=== PATIENT | female | born 1935 | race African-American/Black ===

== ENCOUNTER 2020-12-21 07:55 | Outpatient (CLI) | payer MEDICARE, SELFPAY ==
--- NOTE | ~2020-12-21 | XR_ITS ---
EXAMINATION: XR esophogram water soluble DATE: 12/21/2020 09:35 CDT INDICATION: Achalasia TECHNIQUE: Water-soluble contrast with gas effervescent crystals were administered orally. Fluorosco pic images of the esophagus were obtained in various projections. The hypopharynx was also examined. Thereafter, overhead images of the thoracic esophagrus were performed. Fluroscopy time 0.6 minutes. 6 1 fluoroscopic images. FINDINGS: The esophagus is normal in caliber, without mucosal lesions or strictures. There are tertia ry contractions, consistent with presbyesophagus. No obstruction.. There is no hiatal hernia. No dis creet episode of gastroesophageal reflux is seen during the course of this study. IMPRESSION: 1. Tertiary contractions consistent with presbyesophagus. .No obstruction. Reviewed, dictated and finalized at location A.
== END 2020-12-21 07:56 | disposition home or self-care (01) ==
PROVIDERS: PCP Internal Medicine Gastroenterology; Visit Provider Internal Medicine Gastroenterology
DX: K22.0 Achalasia of cardia (principal)
CPT/HCPCS: 74220

== ENCOUNTER 2021-05-17 01:08 | Day surgery (SDC) | payer MEDICARE, SELFPAY ==
[2021-05-04 13:37] VITALS: BMI 22.0
--- NOTE | 2021-05-14 16:10 | P.HP_ITS ---
History of Present Illness History of Present Illness Consent: Risks, benefits, and alternatives have been discussed and questions answered. Patient agrees to proceed with procedure. Chief complaint: GERD Narrative: Casey Gonzalez is a 86 year old female with dysphagia. She states that she must chew her food very thoroughly. She does not regurgitate when she lays down. A couple years ago she was told when she lived in [place] that she had achalasia for which she had Botox injections Review of Systems Review of Systems: All systems reviewed & are unremarkable except as noted in HPI and below PMFSH Social History Social History Smoking status: Never smoker Alcohol intake: never Substance use: never Substance use type: does not use Living arrangements: retirement Spiritual care concerns: No Meds Home Medications and Allergies Home Medications Medication Instructions Recorded Confirmed Type aspirin 81 mg tablet,delayed 81 mg PO DAILY 10/28/20 05/13/21 History release atorvastatin 20 mg tablet 20 mg PO HS 10/28/20 05/13/21 History buspirone 10 mg tablet 10 mg PO BID 10/28/20 05/13/21 History diltiazem HCl 180 mg 180 mg PO DAILY 10/28/20 05/13/21 History capsule,extended release 24 hr diphenhydramine HCl 50 mg capsule 50 mg PO QHS PRN 10/28/20 05/13/21 History donepezil 10 mg tablet 10 mg PO QHS 10/28/20 05/13/21 History losartan 50 mg tablet 50 mg PO BID 10/28/20 05/13/21 History memantine 10 mg tablet 10 mg PO BID 10/28/20 05/13/21 History omeprazole 40 mg capsule,delayed 40 mg PO BID 10/28/20 05/13/21 History release sucralfate 100 mg/mL oral 10 ml PO QID ml 10/28/20 05/13/21 History suspension trazodone 50 mg tablet 50 mg PO QHS 10/28/20 05/13/21 History calcium carbonate [Tums] 200 mg PO DAILY PRN 05/13/21 05/13/21 History famotidine 20 mg PO BID 05/13/21 05/13/21 History sertraline 100 mg PO DAILY 05/13/21 05/13/21 History Allergies Allergy/AdvReac Type Severity Reaction Status Date / Time No Known Allergies Allergy Verified 05/17/21 11:20 Exam Const: General: alert Orientation/consciousness: patient oriented x3 Resp: Auscultation: clear to auscultation bilaterally Cardio: Rhythm: regular rhythm GI: GI Palp: Yes Soft to palpation and No Tenderness to palpation present (GI) Neuro: General: patient oriented x3 Assessment and Plan Assessment and plan (1) Dysphagia: Code(s): R13.10 - Dysphagia, unspecified Status: Acute Assessment and Plan: EGD with possible biopsy or dilatation or cautery.
[2021-05-17 11:22] VITALS: BP 173/79; PULSE 84; RESP 20; TEMP 36.2; O2SAT 95
[2021-05-17] MEDS: LACTATED RINGERS 1,000 ML 150 ML IV CONT (11:26)
--- NOTE | 2021-05-17 11:49 | P.PNAN_ITS ---
Anes - Initial Pre Proc Eval Procedure: Operation Date: 05/17/21 12:30 Proposed Procedures p Esophagogastroduodenoscopy - Nathaniel Hobbs MD Date/Time: 05/17/21 11:49 Surgeon: Nathaniel Hobbs MD Pre Op Diagnosis: GERD Patient Data Age: 86 Gender: F Height: 1.68 m Weight: 61.7 kg Last Vital Signs Temp 36.2 C L 05/17/21 11:22 Pulse 84 05/17/21 11:22 Resp 20 05/17/21 11:22 BP 173/79 H 05/17/21 11:22 Pulse Ox 95 05/17/21 11:22 Allergies Allergy/AdvReac Type Severity Reaction Status Date / Time No Known Allergies Allergy Verified 05/17/21 11:20 Home Medications Medication Instructions Recorded Confirmed Type aspirin 81 mg tablet,delayed 81 mg PO DAILY 10/28/20 05/13/21 History release atorvastatin 20 mg tablet 20 mg PO HS 10/28/20 05/13/21 History buspirone 10 mg tablet 10 mg PO BID 10/28/20 05/13/21 History diltiazem HCl 180 mg 180 mg PO DAILY 10/28/20 05/13/21 History capsule,extended release 24 hr diphenhydramine HCl 50 mg capsule 50 mg PO QHS PRN 10/28/20 05/13/21 History donepezil 10 mg tablet 10 mg PO QHS 10/28/20 05/13/21 History losartan 50 mg tablet 50 mg PO BID 10/28/20 05/13/21 History memantine 10 mg tablet 10 mg PO BID 10/28/20 05/13/21 History omeprazole 40 mg capsule,delayed 40 mg PO BID 10/28/20 05/13/21 History release sucralfate 100 mg/mL oral 10 ml PO QID ml 10/28/20 05/13/21 History suspension trazodone 50 mg tablet 50 mg PO QHS 10/28/20 05/13/21 History calcium carbonate [Tums] 200 mg PO DAILY PRN 05/13/21 05/13/21 History famotidine 20 mg PO BID 05/13/21 05/13/21 History sertraline 100 mg PO DAILY 05/13/21 05/13/21 History Patient hx anesthesia problems: none Family hx anesthesia problems: none Results Review: All pre-operative results and documents have been reviewed as part of the pre-operative evaluation. [facility] Past Medical History Medical History (Updated 05/17/21 @ 11:50 by Pawan Oconnell MD) GERD (gastroesophageal reflux disease) HTN (hypertension) Hyperlipidemia Surgical History Surgical History (Updated 05/17/21 @ 11:52 by Pawan Oconnell MD) History of esophagogastroduodenoscopy (EGD) Social History Social History Smoking status: Never smoker Alcohol intake: never Substance use: never Substance use type: does not use Living arrangements: custodial Spiritual care concerns: No Anes - Eval Final PreProcedure Day of Procedure 05/17/21 11:49 Patient weight: normal Heart: regular rate and rhythm Lungs: clear to auscultation Airway: Mallampati scale class II Neurological: alert and oriented Last oral intake: >/= 8 hours ASA classification: III Emergent: no Anesthetic plan: proceed Anesthesia type and monitoring: general GIVS and standard monitoring Results Review: All pre-operative results and documents have been reviewed as part of the pre-operative evaluation. Informed Consent: The patient's anesthetic plan and its attendant risks and benefits were discussed with the patient/family/POA. Questions were solicited and answers provided to the satisfaction of the patient/family/POA.
[2021-05-17 12:49] VITALS: BP 145/88; PULSE 78; RESP 20; O2SAT 100
[2021-05-17 12:59] VITALS: BP 126/78; PULSE 74; RESP 21; O2SAT 100
[2021-05-17 13:09] VITALS: BP 165/98; PULSE 73; RESP 15; O2SAT 99
== END 2021-05-17 13:15 | disposition home or self-care (01) ==
PROVIDERS: PCP Family Medicine; Visit Provider Internal Medicine Gastroenterology
PROC: 0DJ08ZZ Inspection of Upper Intestinal Tract, Via Natural or Artificial Opening Endoscopic (ICD-10-PCS; CPT 43235; principal; 2021-05-17 12:30)
DX: R13.10 Dysphagia, unspecified (principal); K21.9 Gastro-esophageal reflux disease without esophagitis; K29.70 Gastritis, unspecified, without bleeding; Z79.82 Long term (current) use of aspirin; I10 Essential (primary) hypertension; E78.5 Hyperlipidemia, unspecified
CPT/HCPCS: 43239; 43450; 87081; J2704; J7120

== ENCOUNTER 2022-05-14 18:33 | Emergency (ER) | payer MEDICARE, SELFPAY ==
[2022-05-14] VITALS (15 sets, daily range): BP systolic 126–174; BP diastolic 68–96; PULSE 75–87; RESP 16–24; TEMP 36.8; O2SAT 96–100
--- NOTE | 2022-05-14 18:38 | ECG_ITS ---
Measurements Intervals [place] Rate: 83 P: 0 [place]: 88 QRS: -14 QRSD: 138 T: -3 QT: 387 QTc: 456 Interpretive Statements SINUS RHYTHM WITH SHORT [place] INTERVAL POSSIBLE LEFT ATRIAL ENLARGEMENT RIGHT BUNDLE BRANCH BLOCK POSSIBLE LEFT VENTRICULAR HYPERTROPHY BASELINE ARTIFACT- V4-V6 ABNORMAL ECG NO PREVIOUS ECG AVAILABLE FOR COMPARISON Electronically Signed On 05-14-2022 20:12:34 CDT by Rajesh Grier D.O.
[2022-05-14 19:08] LABS: Basophils Percent Auto 0.4 % (0.2-1.2); Eosinophils Absolute Auto 0.1 K/mm3 (0-0.3); Eosinophils Percent Auto 1.1 % (0-4.4); Hematocrit 34.2 % (37.0-47.0); Hemoglobin 10.6 g/dL (12.0-15.0); Immature Granulocyte Absolute 0.02 K/mm3 (0.00-0.031); Immature Granulocyte Percent A 0.4 % (0-0.5); Lymphocytes Absolute Auto 1.56 K/mm3 (0.9-3.2); Lymphocytes Percent Auto 28.4 % (18.3-44.2); Mean Corpuscular Hemoglobin 28.6 pg (26-34); Mean Corpuscular Volume 92.4 fl (80-100); Mean Platelet Volume 11.2 fl (7.4-10.4); Monocytes Absolute Auto 0.6 K/mm3 (0.1-0.6); Monocytes Percent Auto 10.2 % (2.6-8.5); Neutrophils Absolute Auto 3.3 K/mm3 (1.3-6.7); Neutrophils Percent Auto 59.5 % (45.5-73.1); Platelet Count Result 258 k/mm3 (150-375); Red Cell Distribution Width 13.5 % (11.5-14.5); White Blood Count 5.5 K/mm3 (4.5-10.0)
[2022-05-14 19:12] LABS: Alanine Aminotransferase 20 U/L (6-35); Albumin Level 4.6 g/dL (3.5-5.1); Alkaline Phosphatase 146 U/L (38-126); Anion Gap 8 mmol/L (8-16); Aspartate Amino Transferase 32 U/L (14-36); Bilirubin,Total 0.5 mg/dL (0.2-1.3); Blood Urea Nitrogen 16 mg/dL (7-17); Calcium 8.9 mg/dL (8.4-10.2); Carbon Dioxide 30 mmol/L (22-30); Chloride 104 mmol/L (98-107); Estimated CRCL calculation 42 ml/min; Estimated Glomerular Filt Rate > 60; Glucose 132 mg/dL (65-110); Potassium 3.5 mmol/L (3.4-5.0); Sodium 142 mmol/L (137-145)
[2022-05-14 19:13] LABS: INR 1.1; Prothrombin Time 13.7 Seconds (11.1-14.7)
[2022-05-14 19:14] LABS: Partial Thromboplastin Time 30.6 SECONDS (22.3-36.8)
--- NOTE | 2022-05-14 20:04 | ED.GENADULT ---
HPI - General Adult General Chief complaint: Altered Mental Status Stated complaint: BACK AND BREAST PAIN Time Seen by Provider: 05/14/22 19:43 History of Present Illness HPI narrative: Patient is an 87-year-old female with a history of dementia, hypertension, hyperlipidemia, GERD presenting with lower back pain. Patient is a resident in a nursing facility. She has been complaining of lower back pain which was mentioned to her daughter today. Her daughter was concerned that she has a UTI as this is how she is presented in the past. Currently, the patient denies any complaints. She states that she does not have back pain right now. She denies abdominal pain, chest pain, shortness of breath, dysuria. Related Data Home Medications Medication Instructions Recorded Confirmed aspirin 81 mg tablet,delayed 81 mg PO DAILY 10/28/20 05/13/21 release atorvastatin 20 mg tablet 20 mg PO HS 10/28/20 05/13/21 buspirone 10 mg tablet 10 mg PO BID 10/28/20 05/13/21 diltiazem HCl 180 mg 180 mg PO DAILY 10/28/20 05/13/21 capsule,extended release 24 hr diphenhydramine HCl 50 mg capsule 50 mg PO QHS PRN pruritis 10/28/20 05/13/21 (Banophen) donepezil 10 mg tablet 10 mg PO QHS 10/28/20 05/13/21 losartan 50 mg tablet 50 mg PO BID 10/28/20 05/13/21 memantine 10 mg tablet 10 mg PO BID 10/28/20 05/13/21 omeprazole 40 mg capsule,delayed 40 mg PO BID 10/28/20 05/13/21 release sucralfate 100 mg/mL oral 10 ml PO QID 10/28/20 05/13/21 suspension trazodone 50 mg tablet 50 mg PO QHS 10/28/20 05/13/21 calcium carbonate 200 mg calcium 200 mg PO DAILY PRN GERD 05/13/21 05/13/21 (500 mg) chewable tablet (Tums) famotidine 10 mg tablet 20 mg PO BID 05/13/21 05/13/21 sertraline 100 mg tablet 100 mg PO DAILY 05/13/21 05/13/21 Allergies Allergy/AdvReac Type Severity Reaction Status Date / Time No Known Allergies Allergy Verified 05/17/21 11:20 Review of Systems Review of Systems: All systems reviewed & are unremarkable except as noted in HPI and below PMFSH Past Medical History Medical History GERD (gastroesophageal reflux disease) HTN (hypertension) Hyperlipidemia Surgical History Surgical History History of esophagogastroduodenoscopy (EGD) Social History Social History Smoking status: Never smoker Alcohol intake: never Substance use: never Substance use type: does not use Spiritual care concerns: No Exam Narrative: GENERAL: Well-appearing, well-nourished, and in no acute distress. HEAD: Normocephalic, atraumatic. EYES: PERRLA and EOMI. ENT: Nares clear, no rhinorrhea or epistaxis. Mucous membranes moist. NECK: Supple. CHEST: Clear to auscultation. No respiratory distress. HEART: Regular rate and rhythm. No murmur heard. Normal peripheral pulses. ABDOMEN: Soft, nontender, nondistended, normal active bowel sounds. EXTREMITIES: Normal range of motion. No edema. SKIN: Warm, dry, no rash. NEURO: No focal deficits. Alert and oriented x1. PSYCH: Normal mood and affect. Course Vital Signs Vital signs: Vital Signs Temperature 98.2 F 05/14/22 18:39 Pulse Rate 84 05/14/22 18:39 Respiratory Rate 17 05/14/22 18:39 Blood Pressure 174/70 H 05/14/22 18:39 Pulse Oximetry 96 05/14/22 18:39 Oxygen Delivery Room Air 05/14/22 18:39 Temperature 98.2 F 05/14/22 18:39 Pulse Rate 78 05/14/22 22:05 Respiratory Rate 17 05/14/22 22:05 Blood Pressure 150/96 H 05/14/22 21:31 Pulse Oximetry 98 05/14/22 20:31 Oxygen Delivery Room Air 05/14/22 18:39 Medical Decision Making [facility] Narrative Medical decision making narrative: Patient is an 87-year-old presenting with an episode of lower back pain. Vitals are within normal limits. Patient is nontoxic and in no acute distress. Exam is remarkable for above. Blood work
[2022-05-14 20:29] LABS: Appearance Urine Clear (Clear); Bilirubin Urine Negative (Negative); Blood Urine Negative (Negative); Color Urine Yellow (Yellow); Glucose Urine UA Negative (Negative); Ketones Urine Negative (Negative); Leukocyte Esterase Ur Negative LEU/UL (Negative); Nitrate Urine Negative (Negative); Protein Urine 1+ mg/dL (Negative); Specific Grav Ur 1.015 (1.001-1.035)
[2022-05-14] MEDS: SODIUM CHLORIDE 0.9% IV 1,000 ML 999 ML IV CONT (20:30)
[2022-05-14 20:49] LABS: Bacteria Urine Trace /hpf; Mucus Urine Heavy /lpf; RBC Urine 0-2 /hpf (0-2); WBC Urine 0-3 /hpf
[2022-05-14 20:55] LABS: Add Urine Microscopic? YES
--- NOTE | 2022-05-14 22:08 | PC.NURSE ---
[facility] called at this time and this nurse spoke with Helen, staff about d/c instruction and to make staff aware that family was bringing pt back to facility.
== END 2022-05-14 23:10 ==
PROVIDERS: Emergency Provider Emergency Medicine; PCP Family Medicine
DX: M54.50 Low back pain, unspecified (principal); I10 Essential (primary) hypertension; E78.5 Hyperlipidemia, unspecified; K21.9 Gastro-esophageal reflux disease without esophagitis; F03.90 Unspecified dementia, unspecified severity, without behavioral disturbance, psychotic disturbance, mood disturbance, and anxiety; Z79.82 Long term (current) use of aspirin; Z79.899 Other long term (current) drug therapy
CPT/HCPCS: 36415; 51701; 80053; 81001; 85025; 85610; 85730; 93005; 96360; 96361; 99284; J7030

== ENCOUNTER 2022-06-06 17:55 | Emergency (ER) | payer MEDICARE, SELFPAY ==
[2022-06-06 17:55] VITALS: BP 166/91; PULSE 85; RESP 18; TEMP 37; O2SAT 97
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
[2022-06-06 19:33] VITALS: BP 158/59; PULSE 83; RESP 14; O2SAT 96
[2022-06-06 20:05] LABS: Basophils Percent Auto 0.2 % (0.2-1.2); Eosinophils Percent Auto 0.3 % (0-4.4); Hemoglobin 9.9 g/dL (12.0-15.0); Immature Granulocyte Absolute 0.01 K/mm3 (0.00-0.031); Immature Granulocyte Percent A 0.2 % (0-0.5); Lymphocytes Absolute Auto 1.32 K/mm3 (0.9-3.2); Mean Corpuscular HGB Conc 31.9 g/dl (32-36); Mean Corpuscular Volume 90.9 fl (80-100); Mean Platelet Volume 10.6 fl (7.4-10.4); Monocytes Absolute Auto 0.7 K/mm3 (0.1-0.6); Monocytes Percent Auto 11.5 % (2.6-8.5); Neutrophils Absolute Auto 3.9 K/mm3 (1.3-6.7); Neutrophils Percent Auto 65.8 % (45.5-73.1); Platelet Count Result 240 k/mm3 (150-375); Red Blood Count 3.41 M/mm3 (4.2-5.4); Red Cell Distribution Width 14.1 % (11.5-14.5)
[2022-06-06 20:30] VITALS: BP 161/84; PULSE 81; RESP 19; O2SAT 100
[2022-06-06 20:30] LABS: Alanine Aminotransferase 17 U/L (6-35); Albumin Level 4.1 g/dL (3.5-5.1); Alkaline Phosphatase 84 U/L (38-126); Anion Gap 7 mmol/L (8-16); Aspartate Amino Transferase 29 U/L (14-36); Bilirubin,Total 0.4 mg/dL (0.2-1.3); Blood Urea Nitrogen 12 mg/dL (7-17); Calcium 9.1 mg/dL (8.4-10.2); Carbon Dioxide 31 mmol/L (22-30); Chloride 103 mmol/L (98-107); Estimated CRCL calculation 40 ml/min; Estimated Glomerular Filt Rate > 60; Glucose 99 mg/dL (65-110); Potassium 3.2 mmol/L (3.4-5.0); Sodium 141 mmol/L (137-145)
[2022-06-06 20:31] LABS: Appearance Urine Clear (Clear); Bilirubin Urine Negative (Negative); Blood Urine Negative (Negative); Color Urine Yellow (Yellow); Glucose Urine UA Negative (Negative); Ketones Urine Negative (Negative); Leukocyte Esterase Ur Negative LEU/UL (Negative); Nitrate Urine Negative (Negative); Protein Urine 1+ mg/dL (Negative); pH Urine 7.5 (5.0-9.0)
[2022-06-06 20:42] LABS: Bacteria Urine 1+ /hpf; Mucus Urine Heavy /lpf; Squamous Epithelial Cell Urine Rare /hpf (Few)
[2022-06-06 21:09] LABS: Add Urine Microscopic? YES
--- NOTE | 2022-06-06 21:14 | PC.NURSE ---
report to tia at [facility].
== END 2022-06-06 20:45 ==
PROVIDERS: Family Medicine; Emergency Provider Preventive Medicine Aerospace Medicine; PCP Family Medicine
DX: F03.918 Unspecified dementia, unspecified severity, with other behavioral disturbance (principal); E78.5 Hyperlipidemia, unspecified; I10 Essential (primary) hypertension; K21.9 Gastro-esophageal reflux disease without esophagitis; Z79.82 Long term (current) use of aspirin
CPT/HCPCS: 36415; 80053; 81001; 85025; 99283

== ENCOUNTER 2022-08-13 19:44 | Emergency (ER) | payer MEDICARE, SELFPAY ==
--- NOTE | ~2022-08-13 | XR_ITS ---
AP view of the pelvis and AP and lateral views of the left hip Clinical history: Pain Findings: No acute fracture or dislocation is seen. Osseous alignment is anatomic. Bilateral hip and SI joint spaces are preserved. Soft tissues are unremarkable. Impression: No significant abnormality is seen. Reviewed, dictated and finalized at [facility]. RAILROAD Impression: No significant abnormality is seen.
--- NOTE | ~2022-08-13 | XR_ITS ---
Left Shoulder Technique: AP and scapular Y views were obtained. Clinical History: Pain Findings: No fracture or dislocation is seen. Osseous alignment is anatomic. There is mild degenerati ve change of the acromioclavicular and glenohumeral joints. Soft tissues are unremarkable. Impression: Mild degenerative change of the glenohumeral and AC joints. No fracture or dislocation. Reviewed, dictated and finalized at location M. SUSPENDER CUTTER Impression: Mild degenerative change of the glenohumeral and AC joints. No fracture or dislocation.
--- NOTE | ~2022-08-13 | CT_ITS ---
CT head without contrast Indication: Status post fall Technique: Serial scans were obtained through the brain without the administration of contrast. Dose reduction technique was used on this scan by utilizing automated exposure control and iterative recon struction technique. The dose-length product (DLP) was 605.33 mGy-cm. Findings: There is no evidence of intracranial hemorrhage, mass lesion, or acute infarct. The ventri cles and subarachnoid spaces are dilated, consistent with mild atrophy. Low attenuation regions are seen within the periventricular white matter bilaterally, likely representing changes from chronic mi crovascular ischemic disease. There is no evidence of edema, mass effect or midline shift. The visu alized paranasal sinuses and mastoid air cells are clear. Impression: No intracranial hemorrhage, mass, or acute infarct. Atrophy and chronic white matter changes, as above. Reviewed, dictated and finalized at location . WINDER Impression: No intracranial hemorrhage, mass, or acute infarct. Atrophy and chronic white matter changes, as above.
--- NOTE | ~2022-08-13 | CT_ITS ---
Noncontrast CT scan of the cervical spine Technique: Multiple contiguous axial [address] images of the cervical spine were obtained and rec onstructed in 2D sagittal and coronal planes on the acquisition scanner. Dose reduction technique was used on this scan by utilizing automated exposure control, adjustment of the mA and/or kV according to patient size. Clinical History: Pain Findings: No fracture identified. There is reversal of normal cervical lordosis, with 3 mm anterolist hesis of C3 over C4. There is moderate degenerative disc narrowing at C4-C5, C5-C6, and C6-C7, with a ssociated uncovertebral degenerative change at these levels as well. There are facet joint degenerative changes throughout the cervical spine. There is probable bilateral neural foraminal narrowing at C3-C4, and right neural foraminal narrowing at C4-C5. No prevertebral soft tissue swelling. Impression: No acute fracture. 3 mm anterolisthesis of C3 over C4, with reversal of the normal cervical lordosis. [id number] degenerative spondylosis, as noted above. Reviewed, dictated and finalized at [facility]. [place] CLIENT SOLUTIONS ANALYST Impression: No acute fracture. 3 mm anterolisthesis of C3 over C4, with reversal of the normal cervical lordos is. [id number] degenerative spondylosis, as noted above.
--- NOTE | ~2022-08-13 | XR_ITS ---
Portable chest x-ray Comparison: None Clinical History: Chest pain Findings: Calcified right basilar granuloma noted. Lungs are otherwise clear. Cardiomediastinal tamara houette is stable. Bones and soft tissues are unremarkable. Impression: No significant abnormality seen. Reviewed, dictated and finalized at [facility]. E SPECIALIST Impression: No significant abnormality seen.
[2022-08-13 19:45] VITALS: BP 167/77; PULSE 80; RESP 18; TEMP 36.4; O2SAT 99
--- NOTE | 2022-08-13 20:03 | ED.FALL ---
HPI - Fall General Chief Complaint: Fall Stated Complaint: fall Time Seen by Provider: 08/13/22 19:53 History of Present Illness HPI Narrative: 87-year-old female presenting to the emergency department from [facility] for evaluation after having a ground-level fall this morning at approximately 11 AM. Patient's family states that the patient had unwitnessed fall. No imaging was done at the facility so family brought the patient to the emergency department for evaluation. Patient does have dementia at baseline and is not a good historian. Patient does not have any recall over the fall. Patient states that she is unsure if she hit her head and is unsure if she has any neck pain. Patient reported she did have some left shoulder pain and some left-sided chest wall pain. While patient declined having any left hip pain to me she was reporting left hip pain to the nurse during evaluation. Patient has a history of dementia. Related Data Home Medications Medication Instructions Recorded Confirmed aspirin 81 mg tablet,delayed 81 mg PO DAILY 10/28/20 05/13/21 release atorvastatin 20 mg tablet 20 mg PO HS 10/28/20 05/13/21 buspirone 10 mg tablet 10 mg PO BID 10/28/20 05/13/21 diltiazem HCl 180 mg 180 mg PO DAILY 10/28/20 05/13/21 capsule,extended release 24 hr diphenhydramine HCl 50 mg capsule 50 mg PO QHS PRN pruritis 10/28/20 05/13/21 (Banophen) donepezil 10 mg tablet 10 mg PO QHS 10/28/20 05/13/21 losartan 50 mg tablet 50 mg PO BID 10/28/20 05/13/21 memantine 10 mg tablet 10 mg PO BID 10/28/20 05/13/21 omeprazole 40 mg capsule,delayed 40 mg PO BID 10/28/20 05/13/21 release sucralfate 100 mg/mL oral 10 ml PO QID 10/28/20 05/13/21 suspension trazodone 50 mg tablet 50 mg PO QHS 10/28/20 05/13/21 calcium carbonate 200 mg calcium 200 mg PO DAILY PRN GERD 05/13/21 05/13/21 (500 mg) chewable tablet (Tums) famotidine 10 mg tablet 20 mg PO BID 05/13/21 05/13/21 sertraline 100 mg tablet 100 mg PO DAILY 05/13/21 05/13/21 Allergies Allergy/AdvReac Type Severity Reaction Status Date / Time No Known Allergies Allergy Verified 08/13/22 19:50 Review of Systems Review of Systems: CONSTITUTIONAL: Denies fever, chills, or sweats. EYES: Denies visual changes, redness, or discharge. ENT: Denies rhinorrhea, congestion, sore throat, or otalgia. CARDIOVASCULAR: Denies chest pain, palpitations, or edema. RESPIRATORY: Denies cough or dyspnea. GASTROINTESTINAL: Denies abdominal pain, nausea, vomiting, or diarrhea. GENITOURINARY: Denies dysuria or hematuria. SKIN: Denies rash or itching. MUSCULOSKELETAL: See HPI NEUROLOGIC: Denies headache, numbness, or weakness. PSYCHIATRIC: Denies anxiety or depression. PMFSH Past Medical History Medical History GERD (gastroesophageal reflux disease) HTN (hypertension) Hyperlipidemia Surgical History Surgical History History of esophagogastroduodenoscopy (EGD) Social History Social History Smoking status: Never smoker Alcohol intake: never Substance use: never Substance use type: does not use Living arrangements: group home Occupation/Education: retired Spiritual care concerns: No Exam Narrative: APPEARANCE: Well appearing, no pain, no distress, well-nourished. HEAD: normocephalic, atraumatic. EYES: PERRLA/EOMI, conjunctivae clear. NOSE: Normal no drainage NECK: Supple. No adenopathy, no masses. RESPIRATORY: Airway patent, respirations nonlabored. Clear to auscultation bilaterally, no rales, rhonchi, wheezing. CARDIOVASCULAR: Regular rate and rhythm without murmurs rubs or gallops. Reproducible left-sided chest wall tenderness to palpation ABDOMINAL: Soft, nontender, nondistended, normal bowel sounds MUSCULOSKELETAL: Posterior shoulder tenderness to palpation. No ecchymosis or deformity. Left-sided chest wa
--- NOTE | 2022-08-13 20:51 | ECG_ITS ---
Measurements Intervals [place] Rate: 73 P: 22 [place]: 117 QRS: -21 QRSD: 136 T: 1 QT: 431 QTc: 478 Interpretive Statements SINUS RHYTHM WITH SHORT [place] INTERVAL POSSIBLE LEFT ATRIAL ENLARGEMENT [-0.1mV P-WAVE IN V1/V2] BORDERLINE LEFT AXIS DEVIATION [QRS AXIS < -20] RIGHT BUNDLE BRANCH BLOCK [120+ ms QRS DURATION, UPRIGHT V1, 40+ ms S IN I/aVL/V4/V5/V6] MODERATE T-WAVE ABNORMALITY, CONSIDER LATERAL ISCHEMIA [-0.1+ mV T-WAVE IN I/aVL/V5/V6] ABNORMAL ECG COMPARED TO ECG 05/14/2022 18:41:21 NO SIGNIFICANT CHANGES Electronically Signed On 08-14-2022 11:29:49 BOX LINING MACHINE OPERATOR by Raffi Rebolledo M.D.
== END 2022-08-13 21:46 ==
PROVIDERS: Emergency Provider Emergency Medicine; PCP Family Medicine
DX: M25.512 Pain in left shoulder (principal); R07.89 Other chest pain; E78.5 Hyperlipidemia, unspecified; I10 Essential (primary) hypertension; W18.30XA Fall on same level, unspecified, initial encounter; Y92.129 Unspecified place in nursing home as the place of occurrence of the external cause
CPT/HCPCS: 70450; 71045; 72125; 73030; 73502; 93005; 99284

== ENCOUNTER 2024-02-25 12:28 | Emergency (ER) | payer MEDICARE, MEDICAID, SELFPAY ==
[2024-02-25] VITALS (11 sets, daily range): BP systolic 133–195; BP diastolic 80–96; PULSE 70–88; RESP 12–20; TEMP 36.5; O2SAT 97–100
--- NOTE | ~2024-02-25 | XR_ITS ---
XR chest 1V portable DATE: 02/25/2024 14:14 INDICATION: Weakness TECHNIQUE: Portable AP chest on 02/25/2024 at 1402 hours COMPARISON: August 13, 2022 AP chest FINDINGS: Cardiomegaly. Aortic ectasia and tortuosity. No hilar or mediastinal enlargement is evident . No pulmonary infiltrate or consolidation, pleural effusion or pulmonary vascular congestion or pneumo thorax is detected. Osteopenia. Scoliosis and degenerative changes of the thoracic and lumbar spine. IMPRESSION: Cardiomegaly No active pulmonary disease or significant change since 08/13/2022 Reviewed, dictated and finalized at location [facility].
--- NOTE | ~2024-02-25 | CT_ITS ---
EXAMINATION: CT brain wo con DATE: 02/25/2024 14:38 INDICATION: Altered mental status TECHNIQUE: Computed tomography (CT) of the head was performed without intravenous contrast. The mA wa s adjusted according to patient size. Iterative reconstruction technique was employed. Exam dose: 52 9.67 mGy-cm total exam DLP. COMPARISON: 08/13/2022 CT brain FINDINGS: There is central and cortical cerebral and cerebellar atrophy. There is prominent calcifica tion of the carotid siphon internal carotid arteries as well as vertebrobasilar calcification and ect clover. Nonspecific diminished attenuation of the cerebral white matter, likely due to chronic small vessel i schemic changes. No intracranial mass lesion or hemorrhage or cerebrovascular accident, midline shift or mass effect o r subdural or epidural hematoma is detected. The orbits are unremarkable. There is a prominent opacified left ethmoid air cell. The included paranasal sinuses and mastoid air cells otherwise are normally developed and aerated. No fracture or bone destruction of the cranial vault. IMPRESSION: Cerebral atherosclerosis and chronic small vessel ischemic changes of the cerebral white matter Cerebral and cerebellar atrophy No acute intracranial finding or significant change since 08/13/2022 Reviewed, dictated and finalized at Location [facility]. Reviewed, dictated and finalized at location J.
--- NOTE | 2024-02-25 12:58 | ECG_ITS ---
Test Date: 2024-02-25 13:13:53 Measurements Intervals [place] Rate: 75 P: 43 RI: 122 QRS: -27 QRSD: 153 T: 81 QT: 411 QTc: 460 Interpretive Statements SINUS RHYTHM WITH OCCASIONAL ECTOPIC PREMATURE COMPLEXES POSSIBLE LEFT ATRIAL ENLARGEMENT [-0.1mV P WAVE IN V1/V2] BORDERLINE LEFT AXIS DEVIATION [QRS AXIS < -20] RIGHT BUNDLE BRANCH BLOCK [120+ ms QRS DURATION, UPRIGHT V1, 40+ ms S IN I/aVL/V4/V5/V6] POSSIBLE LEFT VENTRICULAR HYPERTROPHY [VOLTAGE CRITERIA PLUS LAE OR QRS WIDENING] MODERATE T-WAVE ABNORMALITY, CONSIDER LATERAL ISCHEMIA [-0.1+ mV T WAVE IN I/aVL/V5/V6] ABNORMAL ECG No previous ECG available for comparison Electronically Signed On 02-26-2024 10:52:58 CDT by Raffi Rebolledo M.D.
[2024-02-25 13:41] LABS: Alveolar/Arterial O2 Gradient 22.6 mmHg; Fractional Inspired Oxygen 21 %; HCO3 ABG 26.6 mEq/l (22.0-26.0); Oxygen Content ABG 14.7 %vol (16.0-22.0); Oxygen Saturation ABG 95.7 % (95.0-100.0); Oxyhemoglobin 94.5 % THb (90.0-100.0); PCO2 ABG 41.5 mmHg (35.0-45.0); PO2 ABG 77.4 mmHg (80.0-100.0); PO2 FiO2 Ratio Arterial Blood 3.69 %; pH ABG 7.425 (7.350-7.450)
[2024-02-25 13:42] LABS: Device ROOM AIR; Modified Allen's Test Pass; Site Drawn LEFT RADIAL
[2024-02-25 13:42] LABS: Basophils Percent Auto 0.2 % (0.2-1.2); Eosinophils Absolute Auto 0.1 K/mm3 (0-0.3); Eosinophils Percent Auto 1.3 % (0-4.4); Hematocrit 33.3 % (37.0-47.0); Hemoglobin 10.6 g/dL (12.0-15.0); Immature Granulocyte Absolute 0.01 K/mm3 (0.00-0.031); Immature Granulocyte Percent A 0.2 % (0-0.5); Lymphocytes Absolute Auto 1.01 K/mm3 (0.9-3.2); Lymphocytes Percent Auto 22.1 % (18.3-44.2); Mean Corpuscular HGB Conc 31.8 g/dl (32-36); Mean Platelet Volume 11.2 fl (7.4-10.4); Monocytes Absolute Auto 0.4 K/mm3 (0.1-0.6); Monocytes Percent Auto 9.6 % (2.6-8.5); Neutrophils Percent Auto 66.6 % (45.5-73.1); Platelet Count Result 252 k/mm3 (150-375); Red Blood Count 3.66 M/mm3 (4.2-5.4); Red Cell Distribution Width 14.3 % (11.5-14.5); White Blood Count 4.6 K/mm3 (4.5-10.0)
[2024-02-25 13:52] LABS: Alanine Aminotransferase 13 U/L (6-35); Albumin Level 4.3 g/dL (3.5-5.1); Alkaline Phosphatase 86 U/L (38-126); Anion Gap 7 mmol/L (4-12); Aspartate Amino Transferase 24 U/L (14-36); Bilirubin,Total 0.5 mg/dL (0.2-1.3); Blood Urea Nitrogen 17 mg/dL (7-17); Calcium 9.2 mg/dL (8.4-10.2); Carbon Dioxide 33 mmol/L (22-30); Chloride 100 mmol/L (98-107); Estimated Glomerular Filt Rate > 60; Glucose 98 mg/dL (65-110); INR 1.1; Potassium 3.9 mmol/L (3.4-5.0); Prothrombin Time 14.4 Seconds (11.1-14.7); Sodium 140 mmol/L (137-145)
[2024-02-25 13:53] LABS: Partial Thromboplastin Time 34.8 Seconds (22.3-36.8)
[2024-02-25 13:58] LABS: Lactic Acid Reflex 1.3 mmol/L (0.7-2.0)
[2024-02-25 14:03] LABS: Troponin I < 0.012 ng/mL (0.000-0.034)
[2024-02-25 14:06] LABS: Add Urine Microscopic? NO; Appearance Urine Clear (Clear); Bilirubin Urine Negative (Negative); Blood Urine Negative (Negative); Color Urine Yellow (Yellow); Glucose Urine UA Negative (Negative); Ketones Urine Negative (Negative); Leukocyte Esterase Ur Negative LEU/UL (Negative); Nitrate Urine Negative (Negative); Protein Urine Negative (Negative); Specific Grav Ur 1.005 (1.001-1.035); Urobilinogen Urine 0.2 mg/dL (<2.0); pH Urine 7.5 (5.0-9.0)
[2024-02-25 14:09] LABS: Procalcitonin 0.1 ng/mL
--- NOTE | 2024-02-25 14:18 | ED.GENADULT ---
HPI - General Adult General Chief complaint: Altered Mental Status Stated complaint: decreased loc Time Seen by Provider: 02/25/24 13:04 History of Present Illness HPI narrative: Patient is a 89-year-old female who presents emergency department with chief complaint of altered mental status. Patient is resident of a local nursing facility and has been more combative than usual last night this morning was more lethargic than normal. The family reports that earlier this week face are and she was acting her baseline she does have prior history of dementia Related Data Home Medications Medication Instructions Recorded Confirmed aspirin 81 mg tablet,delayed 81 mg PO DAILY 10/28/20 02/15/24 release atorvastatin 20 mg tablet 20 mg PO HS 10/28/20 02/15/24 buspirone 10 mg tablet 10 mg PO BID 10/28/20 02/15/24 diltiazem HCl 180 mg 180 mg PO DAILY 10/28/20 02/15/24 capsule,extended release 24 hr diphenhydramine HCl 50 mg capsule 50 mg PO QHS PRN pruritis 10/28/20 02/15/24 (Banophen) donepezil 10 mg tablet 10 mg PO QHS 10/28/20 02/15/24 losartan 50 mg tablet 50 mg PO BID 10/28/20 02/15/24 memantine 10 mg tablet 10 mg PO BID 10/28/20 02/15/24 omeprazole 40 mg capsule,delayed 40 mg PO BID 10/28/20 02/15/24 release sucralfate 100 mg/mL oral 10 ml PO QID 10/28/20 02/15/24 suspension trazodone 50 mg tablet 50 mg PO QHS 10/28/20 02/15/24 calcium carbonate (Tums) 200 mg PO DAILY PRN GERD 05/13/21 02/15/24 famotidine 10 mg tablet 20 mg PO BID 05/13/21 02/15/24 sertraline 100 mg tablet 100 mg PO DAILY 05/13/21 02/15/24 Allergies Allergy/AdvReac Type Severity Reaction Status Date / Time No Known Allergies Allergy Verified 02/25/24 13:07 Review of Systems Review of Systems: A 10 system review of systems was completed on the patient and is negative except for what is stated in the HPI. Nursing and ancillary documentation was reviewed[facility] Past Medical History Medical History GERD (gastroesophageal reflux disease) HTN (hypertension) Hyperlipidemia Surgical History Surgical History History of esophagogastroduodenoscopy (EGD) Social History Social History Smoking status: Never smoker Alcohol intake: never Substance use: never Substance use type: does not use Living arrangements: intermediate Occupation/Education: retired Spiritual care concerns: No Exam Narrative: GENERAL: Well-appearing, well-nourished, and in no acute distress. HEAD: Normocephalic, atraumatic. EYES: PERRLA and EOMI. ENT: Nares clear, no rhinorrhea or epistaxis. Mucous membranes moist. NECK: Supple. CHEST: Clear to auscultation. No respiratory distress. HEART: Regular rate and rhythm. No murmur heard. Normal peripheral pulses. ABDOMEN: Soft, nontender, nondistended, normal active bowel sounds. EXTREMITIES: Normal range of motion. No edema. SKIN: Warm, dry, no rash. NEURO: No focal deficits. Alert and oriented to baseline. PSYCH: Normal mood and affect. Course Vital Signs Vital signs: Vital Signs Temperature 36.5 C 02/25/24 12:27 Pulse Rate 72 02/25/24 12:27 Respiratory Rate 18 02/25/24 12:27 Blood Pressure 183/96 H 02/25/24 12:27 Pulse Oximetry 97 02/25/24 12:27 Oxygen Delivery Room Air 02/25/24 12:27 Temperature 36.5 C 02/25/24 12:27 Pulse Rate 75 02/25/24 14:01 Respiratory Rate 17 02/25/24 14:01 Blood Pressure 195/90 H 02/25/24 14:01 Pulse Oximetry 98 02/25/24 14:01 Oxygen Delivery Room Air 02/25/24 12:30 Medical Decision Making [facility] Narrative Medical decision making narrative: Differential diagnosis includes worsening dementia, ACS, electrolyte abnormality, dehydration, UTI, pneumonia Laboratory studies were obtained on the patient showed an ABG with normal pH and nor
[2024-02-25 14:19] LABS: Influenza A QL RT-PCR Negative (Negative); Influenza B QL RT-PCR Negative (Negative); RSV RNA, RT-PCR Negative (Negative); SARS-CoV-2 RNA PCR Negative (Negative)
--- NOTE | 2024-02-25 17:20 | PC.NURSE ---
ATTEMPTED TO CALL REPORT TO [facility]. NURSE TO CALL BACK AT THEIR CONVENIENCE.
--- NOTE | 2024-02-25 18:44 | PC.NURSE ---
ATTEMPTED TO CALL [facility] FOR THE SECOND TIME TO GIVE REPORT TO THE NURSE. THEY ARE STILL BUSY AND WILL CALL BACK IF THEY HAVE ANY QUESTIONS. FULL CHART WITH EKG,LAB RESULTS,XRAY AND CT RESULTS ARE GOING BACK WITH THE PT VIA EMS.
== END 2024-02-25 19:26 ==
PROVIDERS: Emergency Medicine; Emergency Provider Emergency Medicine; PCP Family Medicine
DX: R53.1 Weakness (principal); Z20.822 Contact with and (suspected) exposure to COVID-19; F03.90 Unspecified dementia, unspecified severity, without behavioral disturbance, psychotic disturbance, mood disturbance, and anxiety; I10 Essential (primary) hypertension; E78.5 Hyperlipidemia, unspecified; K21.9 Gastro-esophageal reflux disease without esophagitis; Z79.82 Long term (current) use of aspirin; Z79.899 Other long term (current) drug therapy
CPT/HCPCS: 36415; 36600; 70450; 71045; 80053; 81003; 82805; 83605; 83735; 84145; 84484; 85025; 85610; 85730; 87637; 93005; 99284

== ENCOUNTER 2024-09-13 13:58 | Emergency (ER) | payer MEDICARE, MEDICAID, SELFPAY ==
--- OUTSIDE RECORDS SUMMARY | 2024-09-13 14:13 | XMS_ITS | Referral Summary ---
Author Organization [facility] [place] the [facility] Office Center Address [address] [place] [address] Care Team Providers Care Zipper Lining Folder Name Role Phone Marcello Son MD Primary Care Provider [phone] Allergies No known active allergies Medications NYDIA ASPIRIN ORAL Take 81 tablets by mouth daily Active donepeziL (ARICEPT) 10 mg tablet Take 1 tablet (10 mg total) by mouth nightly 30 tablet 5 0 Active diphenhydrAMINE (BENADRYL) 50 mg capsule Take 1 capsule (50 mg total) by mouth every 6 (six) hours as needed for itching 120 capsule 0 Active losartan (COZAAR) 50 mg tablet Take 1 tablet (50 mg total) by mouth 2 (two) times a day 90 tablet 3 0 Active memantine (NAMENDA) 10 mg tablet Take 1 tablet (10 mg total) by mouth 2 (two) times a day 90 tablet 3 0 Active dilTIAZem XR (dilTIAZem CD) 180 mg 24 hr capsule Take 1 capsule (180 mg total) by mouth daily 90 capsule 3 0 Active busPIRone (BUSPAR) 10 mg tabletIndicatio ns:Generalized Anxiety Disorder Take 10 mg by mouth daily Active atorvastatin (LIPITOR) 20 mg tablet Take 20 mg by mouth daily Active traZODone (DESYREL) 50 mg tablet Take 1 tablet by mouth nightly 2 Active sucralfate (CARAFATE) suspension 1 gram/10 mL Take 10 mL by mouth 4 (four) times a day 2 Active omeprazole (PriLOSEC) 40 mg capsule Take 40 mg by mouth 2 (two) times a day Active acetaminophen (TYLENOL) 325 mg tablet Take 650 mg by mouth every morning Active calcium carbonate (TUMS) 500 mg (200 mg elemental) chewable tablet Take 1 tablet by mouth daily as needed for indigestion or heartburn Active cholecalciferol (VITAMIN D-3) 1,000 unit capsule Take 1,000 Units by mouth daily Active sertraline (ZOLOFT) 50 mg tablet Take 50 mg by mouth 4 (four) times a day 2 Active famotidine (PEPCID) 20 mg tablet [address] (DEPAKOTE) 125 mg EC tablet Take 125 mg by mouth 3 (three) times a day Active Active Problems Problem Noted Date Diagnosed Date Other insomnia 07/06/2020 Gastroesophageal reflux disease with esophagitis 07/06/2020 Breast cancer, female 04/09/2020 Hypertension, essential 03/02/2020 Alzheimer disease 03/02/2020 Immunizations Immunization Administration Dates Next Due Influenza, Trivalent, High D ose, Split, Preservative Free, Intramuscular 05/23/2018 Influenza, Unspecified 03/23/2015,03/03/2014, Pneumococcal Conjugate PCV 13 03/04/2015 Pneumococcal Polysaccharide PPV23 11/28/2016 Tdap 03/04/2015 Social History Tobacco Use Types Packs/Day Years Used Date Smoking Tobacco: Never Smokeless Tobacco: Never Tobacco Cessation:Counseling Given: Not Answered Alcohol Use Standard Drinks/Week Comments Never 0 (1 standard drink = 0.6 oz pur e alcohol) AUDIT-C Answer Date Recorded Q1: How often do you have a drink containing alcohol? Never 05/09/2022 Q2: How many drinks containi ng alcohol do you have on a typical day when you are drinking? Patient does not drink 2 Q3: How often do you have si x or more drinks on one occasion? Never 05/09/2022 Personal Safety Answer Date Recorded Getting School Help Needed Not on file 09/23 Comments No Sex and Gender Information Value Date Recorded Sex Assigned at Not on file Legal Sex Female 8:18 AM CDT Gender Identity Female 03/01/2020 11:53 AM CDT Sexual Orientation Not on file Last Filed Vital Signs Vital Sign Reading Time Taken Comments Blood Pressure 128/80 05/09/2022 8:56 AM CDT Pulse 87 05/09/2022 8:56 AM CDT Temperature 36.1 C (96.9 F) 05/09/2022 8:56 AM CDT Respiratory Rate 18 05/09/2022 8:56 AM CDT Oxygen Saturation 96% 05/09/2022 8:56 AM CDT Inhaled Oxygen Concentration - - Weight 58 kg (127 lb 12.8 oz) 05/09/2022 8:56 AM CDT Height 165.1 cm (5' 5 ) 05/09/2022 8:56 AM CDT Body Mass Index 21.27 05/09/2022 8:56 AM CDT Plan of Treatment Not on file Insurance [employer] CHOICE MEDICARE PPO Care Teams Zipper Lining Folder Relationship Specialty Start Date End Date aMrcello Son MD [address] [facility] [address] [address] [place] [address] PCP - General Family Medicine 02/28/20
--- OUTSIDE RECORDS SUMMARY | 2024-09-13 14:13 | XMS_ITS | Clinical Summary ---
Author Organization [facility] [place] at the [facility] Office Center Address [address] [place] [address] Care Team Providers Care Engineering Research Manager Name Role Phone Marcello Son MD Primary Care Provider [phone] Allergies No known active allergies Medications NYDIA [...] 03/04/2015 Pneumococcal Polysaccharide PPV23 11/28/2016 Tdap 03/04/2015 Surgical History Surgery Date Site/Laterality Comments EYE SURGERY Medical History Medical History Date Comments Alzheimer disease (HCC) Dementia (HCC) Hypertension GERD (gastroesophageal reflux disease) Insomnia Family History Medical History Relation Name Comments No Known Problems Father No Known Problems Mother Relation Name Status Comments Father Mother Social History Tobacco Use Types Packs/Day Years [...] you are drinking? Patient does not drink Q3: How often do you have si x or more drinks on one occasion? Never 05/09/2022 Personal Safety Answer Date Recorded Getting School Help Needed Not on file 09/23 Comments No Sex and Gender Information Value Date Recorded Sex Assigned at Not on file Legal Sex Female 8:18 AM CDT Gender Identity Female 03/01/2020 11:53 AM CDT Sexual Orientation Not on file Obstetrics History Last Filed Vital Signs Vital Sign Reading [...] 05/09/2022 8:56 AM CDT Plan of Treatment Health Maintenance Due Date Last Done Comments Depression Screening 1937 Fall Risk Assessment 1935 Hepatitis B Screening 1955 Zoster Vaccine (1 of 2) 1987 Well Visit 65+ 2002 Influenza Vaccine (#1) 2024 8, 03/23/2015, 03/03/2014, Additional history exists DTaP/Tdap/Td Vaccine (2 - Td or Tdap) 03/04/2025 03/04/2015 Pneumococcal vaccine 65+ Completed 11/28/2016, 02/08 Insurance [employer] CHOICE MEDICARE PPO Care Teams Engineering Research Manager Relationship Specialty Start Date End Date Marcello Son MD [address] [facility] [address] [place] [address] [place] [id number] PCP - General Family Medicine 02/28/20
[2024-09-13 14:17] VITALS: BP 149/71; PULSE 89; RESP 16; TEMP 36.9; O2SAT 98
[2024-09-13 17:48] VITALS: BP 159/84; PULSE 78; RESP 16; TEMP 37.4; O2SAT 99
[2024-09-13 22:21] VITALS: BP 151/76; PULSE 70; RESP 17; O2SAT 100
--- OUTSIDE RECORDS SUMMARY | 2024-09-13 22:55 | XMS_ITS | Clinical Summary ---
Author Organization [facility] [place] at the [facility] Office Center Address [address] [place] [address] Care Team Providers Care Executive Chef Name Role Phone Marcello Son MD Primary Care Provider [phone] Allergies No known active allergies Medications NYDIA [...] Pneumococcal vaccine 65+ Completed 11/28/2016, 02/08 Insurance [employer] CHOICE MEDICARE PPO Care Teams Executive Chef Relationship Specialty Start Date End Date Marcello Son MD [address] [facility] [facility] [address] [place] [address] [place] [id number] PCP - General Family Medicine 02/28/20
--- OUTSIDE RECORDS SUMMARY | 2024-09-13 22:55 | XMS_ITS | Referral Summary ---
Author Organization [facility] [place] [facility] Office Center Address [address] [place] [address] Care Team Providers Care Electrician Journeyman Wireman Name Role Phone Marcello Son MD Primary Care Provider [phone] Allergies No known active allergies Medications NYDIA [...] Insurance [employer] CHOICE MEDICARE PPO Care Teams Electrician Journeyman Wireman Relationship Specialty Start Date End Date Marcello Son MD [address] [facility] [place] [address] PCP - General Family Medicine 02/28/20
[2024-09-13 23:47] VITALS: BP 107/93; PULSE 71; RESP 12; O2SAT 100
[2024-09-13 23:53] LABS: Basophils Percent Auto 0.2 % (0.2-1.2); Eosinophils Absolute Auto 0.1 K/mm3 (0-0.3); Eosinophils Percent Auto 1.3 % (0-4.4); Hematocrit 30.6 % (37.0-47.0); Hemoglobin 9.7 g/dL (12.0-15.0); Immature Granulocyte Absolute 0.01 K/mm3 (0.00-0.031); Immature Granulocyte Percent A 0.2 % (0-0.5); Lymphocytes Absolute Auto 1.31 K/mm3 (0.9-3.2); Lymphocytes Percent Auto 28.7 % (18.3-44.2); Mean Corpuscular HGB Conc 31.7 g/dl (32-36); Mean Corpuscular Hemoglobin 29.8 pg (26-34); Mean Corpuscular Volume 93.9 fl (80-100); Mean Platelet Volume 10.1 fl (7.4-10.4); Monocytes Absolute Auto 0.5 K/mm3 (0.1-0.6); Monocytes Percent Auto 10.7 % (2.6-8.5); Neutrophils Absolute Auto 2.7 K/mm3 (1.3-6.7); Neutrophils Percent Auto 58.9 % (45.5-73.1); Platelet Count Result 196 k/mm3 (150-375); Red Blood Count 3.26 M/mm3 (4.2-5.4); Red Cell Distribution Width 14.8 % (11.5-14.5); White Blood Count 4.6 K/mm3 (4.5-10.0)
[2024-09-14 00:02] LABS: Alanine Aminotransferase 13 U/L (6-35); Albumin Level 4.1 g/dL (3.5-5.1); Alkaline Phosphatase 76 U/L (38-126); Anion Gap 7 mmol/L (4-12); Aspartate Amino Transferase 23 U/L (14-36); Bilirubin,Total 0.4 mg/dL (0.2-1.3); Blood Urea Nitrogen 21 mg/dL (7-17); Calcium 9.3 mg/dL (8.4-10.2); Carbon Dioxide 32 mmol/L (22-30); Chloride 103 mmol/L (98-107); Estimated CRCL calculation 32 ml/min; Estimated Glomerular Filt Rate > 60; Glucose 97 mg/dL (65-110); Potassium 3.8 mmol/L (3.4-5.0); Sodium 142 mmol/L (137-145)
[2024-09-14 00:08] LABS: Add Urine Microscopic? YES; Appearance Urine Cloudy (Clear); Bacteria Urine 4+ /hpf; Bilirubin Urine Negative (Negative); Blood Urine Negative (Negative); Color Urine Yellow (Yellow); Glucose Urine UA Negative (Negative); Ketones Urine Negative (Negative); Leukocyte Esterase Ur Negative LEU/UL (Negative); Need Manual Microscopic Reviewed; Nitrate Urine Negative (Negative); Non Pathogenic Casts 0-2; Protein Urine Negative (Negative); Specific Grav Ur 1.012 (1.001-1.035); Squamous Epithelial Cell Urine None Seen /hpf (Few); WBC Urine 0-5 /hpf (0-3)
--- NOTE | 2024-09-14 00:25 | ED_ITS ---
HPI - General Adult General Chief complaint: Unspecified Stated complaint: combative per staff Time Seen by Provider: 09/13/24 22:33 History of Present Illness HPI narrative: Patient a 9-year-old female who presents emergency department with chief complaint of reported being combative and throwing herself on the floor the patient was brought in by EMS and the patient has had no complaints and has been acting her normal self since she arrived from the facility the patient currently has no complaints and has been cooperative with staff Related Data Home Medications ?Medication ?Instructions ?Recorded ?Confirmed ?Last Taken ?Type aspirin 81 mg tablet,delayed 81 mg PO DAILY 10/28/20 02/15/24 05/16/21 History release atorvastatin 20 mg tablet 20 mg PO HS 10/28/20 02/15/24 05/16/21 History buspirone 10 mg tablet 10 mg PO BID 10/28/20 02/15/24 05/17/21 08:00 History diltiazem HCl 180 mg 180 mg PO DAILY 10/28/20 02/15/24 05/17/21 08:00 History capsule,extended release 24 hr diphenhydramine HCl 50 mg capsule 50 mg PO QHS PRN pruritis 10/28/20 02/15/24 05/16/21 History (Banophen) donepezil 10 mg tablet 10 mg PO QHS 10/28/20 02/15/24 05/16/21 History losartan 50 mg tablet 50 mg PO BID 10/28/20 02/15/24 05/16/21 History memantine 10 mg tablet 10 mg PO BID 10/28/20 02/15/24 05/17/21 08:00 History omeprazole 40 mg capsule,delayed 40 mg PO BID 10/28/20 02/15/24 05/16/21 History release sucralfate 100 mg/mL oral 10 ml PO QID 10/28/20 02/15/24 05/16/21 History suspension trazodone 50 mg tablet 50 mg PO QHS 10/28/20 02/15/24 05/16/21 History calcium carbonate (Tums) 200 mg PO DAILY PRN GERD 05/13/21 02/15/24 05/16/21 History famotidine 10 mg tablet 20 mg PO BID 05/13/21 02/15/24 05/16/21 History sertraline 100 mg tablet 100 mg PO DAILY 05/13/21 02/15/24 05/17/21 08:00 History Allergies Allergy/AdvReac Type Severity Reaction Status Date / Time No Known Allergies Allergy Verified 09/13/24 13:58 Review of Systems 2 Review of Systems: A 10 system review of systems was completed on the patient and is negative except for what is stated in the HPI. Nursing and ancillary documentation was reviewed. [facility] Past Medical History Medical History GERD (gastroesophageal reflux disease) Hyperlipidemia HTN (hypertension) Surgical History Surgical History History of esophagogastroduodenoscopy (EGD) Social History Social History Smoking status: Never smoker Alcohol intake: never Substance use: never Substance use type: does not use Living arrangements: skilled nursing Occupation/Education: retired Spiritual care concerns: No Exam 2 Narrative: GENERAL: Well-appearing, well-nourished, and in no acute distress. HEAD: Normocephalic, atraumatic. EYES: PERRLA and EOMI. ENT: Nares clear, no rhinorrhea or epistaxis. Mucous membranes moist. NECK: Supple. CHEST: Clear to auscultation. No respiratory distress. HEART: Regular rate and rhythm. No murmur heard. Normal peripheral pulses. ABDOMEN: Soft, nontender, nondistended, normal active bowel sounds. EXTREMITIES: Normal range of motion. No edema. SKIN: Warm, dry, no rash. NEURO: No focal deficits. Alert and oriented to baseline. PSYCH: Normal mood and affect. Course Vital Signs Vital signs: Vital Signs Temperature 36.9 C 09/13/24 14:17 Pulse Rate 89 09/13/24 14:17 Respiratory Rate 16 09/13/24 14:17 Blood Pressure 149/71 H 09/13/24 14:17 Pulse Oximetry 98 09/13/24 14:17 Oxygen Delivery Room Air 09/13/24 14:17 Temperature 37.4 C 09/13/24 17:48 Pulse Rate 71 09/13/24 23:47 Respiratory Rate 12 09/13/24 23:47 Blood Pressure 107/93 H 09/13/24 23:47 Pulse Oximetry 100 09/13/24 23:47 Oxygen Delivery Room Air 09/13/24 14:17 Medical Decision Making [facility] Narrative Medical decision making narrative: Differential diagnosis includes UTI, electrolyte abnormality, dehydration Laboratory studies were obtained on the patient showed a CBC with white count of 4.6 hemoglobin was 9.7 electrolytes showed a BUN of 21 creatinine is 0.81 Urinalysis showed 0-5 white blood cells negative nitrate 4+ bacteria negative leukocyte esterase. Urine culture will be sent Vital Signs Vital Signs: Vital Signs Temperature 36.9 C 09/13/24 14:17 Pulse Rate 89 09/13/24 14:17 Respiratory Rate 16 09/13/24 14:17 Blood Pressure 149/71 H 09/13/24 14:17 Pulse Oximetry 98 09/13/24 14:17 Oxygen Delivery Room Air 09/13/24 14:17 Temperature 37.4 C 09/13/24 17:48 Pulse Rate 71 09/13/24 23:47 Respiratory Rate 12 09/13/24 23:47 Blood Pressure 107/93 H 09/13/24 23:47 Pulse Oximetry 100 09/13/24 23:47 Oxygen Delivery Room Air 09/13/24 14:17 Lab Data 09/13/24 23:48 09/13/24 23:47 Labs: Lab Results 09/13/24 09/13/24 Range/Units 23:47 23:48 WBC 4.6 (4.5-10.0) K/mm3 RBC 3.26 L (4.2-5.4) M/mm3 Hgb 9.7 L (12.0-15.0) g/dL Hct 30.6 L (37.0-47.0) % MCV 93.9 (80-100) fl MCH 29.8 (26-34) pg MCHC 31.7 L (32-36) g/dl RDW 14.8 H (11.5-14.5) % Plt Count 196 (150-375) k/mm3 MPV 10.1 (7.4-10.4) fl Immature Gran % (Auto) 0.2 (0-0.5) % Neut % (Auto) 58.9 (45.5-73.1) % Lymph % (Auto) 28.7 (18.3-44.2) % Riley % (Auto) 10.7 H (2.6-8.5) % Eos % (Auto) 1.3 (0-4.4) % Baso % (Auto) 0.2 (0.2-1.2) % Lymph # (Auto) 1.31 (0.9-3.2) K/mm3 Riley # (Auto) 0.5 (0.1-0.6) K/mm3 Eos # (Auto) 0.1 (0-0.3) K/mm3 Baso # (Auto) 0.0 (0.0-0.1) K/mm3 Abs Immat Gran (auto) 0.01 (0.00-0.031) K/mm3 Absolute Neuts (auto) 2.7 (1.3-6.7) K/mm3 Absolute Nucleated RBC 0.000 (0.0-0.012) K/mm3 Nucleated RBC % 0.0 (0.0-0.2) % Sodium 142 (137-145) mmol/L Potassium 3.8 (3.4-5.0) mmol/L Chloride 103 (98-107) mmol/L Carbon Dioxide 32 H (22-30) mmol/L Anion Gap 7 (4-12) mmol/L BUN 21 H (7-17) mg/dL Creatinine 0.81 (0.7-1.0) mg/dL Estim Creat Clear Calc 32 ml/min Estimated GFR > 60 (59 - ) Glucose 97 (65-110) mg/dL Calcium 9.3 (8.4-10.2) mg/dL Total Bilirubin 0.4 (0.2-1.3) mg/dL AST 23 (14-36) U/L ALT 13 (6-35) U/L Alkaline Phosphatase 76 (38-126) U/L Total Protein 7.0 (6.3-8.2) g/dL Albumin 4.1 (3.5-5.1) g/dL Urine Color Yellow (Yellow) Urine Appearance Cloudy H (Clear) Urine pH 8.0 (5.0-9.0) Ur Specific [place] 1.012 (1.001-1.035) Urine Protein Negative (Negative) mg/dL Urine Glucose (UA) Negative (Negative) mg/dL Urine Ketones Negative (Negative) mg/dL Ur Blood (Man) Negative (Negative) Urine Nitrate Negative (Negative) Urine Bilirubin Negative (Negative) Urine Urobilinogen 1.0 (<2.0) mg/dL Add Ur Microanalysis Reviewed Leukocyte Esterase Rfl Negative (Negative) ADEEL/UL Urine RBC 3-5 H (0-2) /hpf Urine WBC 0-5 (0-3) /hpf Ur Squamous Epith Cells None seen (Few) /hpf Urine Bacteria 4+ H /hpf Urine Casts 0-2 Discharge Plan Discharge Clinical Impression: Aggressive behavior due to dementia Patient Disposition: NH Assisted/Asst Living Condition: Stable Instructions: Antibiotic Form, Dementia (ED) Patient Language: Chilean Prescriptions: No Action aspirin 81 mg tablet,delayed release (DR/EC) 81 mg PO DAILY atorvastatin 20 mg tablet 20 mg PO HS diphenhydramine HCl [Banophen] 50 mg capsule 50 mg PO QHS PRN (Reason: pruritis) buspirone 10 mg tablet 10 mg PO BID diltiazem HCl 180 mg capsule,extended release 24hr 180 mg PO DAILY donepezil 10 mg tablet 10 mg PO QHS losartan 50 mg tablet 50 mg PO BID memantine 10 mg tablet 10 mg PO BID omeprazole 40 mg capsule,delayed release(DR/EC) 40 mg PO BID sucralfate 100 mg/mL suspension 10 ml PO QID trazodone 50 mg tablet 50 mg PO QHS famotidine 10 mg Tablet 20 mg PO BID sertraline 100 mg Tablet 100 mg PO DAILY calcium carbonate [Tums] 200 mg calcium (500 mg) Tablet,Chewable 200 mg PO DAILY PRN (Reason: GERD) Paxlovid 300 mg (150 mg x 2)-100 mg tablets,dose pack See Rx Instructions PO .COMPLEX Qty: 30 0RF Rx Instructions: take TWO 150 mg tablets of nirmatrelvir with ONE 100 mg tablet of ritonavir twice daily for 5 days PO Follow-up/Referrals: Max Love MD [Primary Care Provider] - Time of Disposition: 00:28
== END 2024-09-14 03:00 ==
PROVIDERS: Emergency Provider Emergency Medicine; PCP Family Medicine
DX: F03.911 Unspecified dementia, unspecified severity, with agitation (principal); E78.5 Hyperlipidemia, unspecified; I10 Essential (primary) hypertension; K21.9 Gastro-esophageal reflux disease without esophagitis
CPT/HCPCS: 36415; 80053; 81001; 85025; 99283

== ENCOUNTER 2024-12-04 18:46 | Emergency (ER) | payer MEDICARE, MEDICAID, SELFPAY ==
--- NOTE | ~2024-12-04 | CT_ITS ---
CT brain wo con Ordering provider: Blayne Valentin MD History: 89 years Female with . ams . Comparison: February 25, 2024 Technique: CT of the head without contrast. Radiation reduction technique utilized.The dose-length pr oduct was 605.33 mGy-cm. FINDINGS: BRAIN PARENCHYMA AND CSF SPACES: Mild leukoaraiosis and diffuse cortical atrophy. Mild atheromatous d isease. No midline shift, mass effect or hemorrhage. The brain parenchyma and CSF spaces are otherwi se normal. VISUALIZED PARANASAL SINUSES: Left ethmoid sinus disease. Otherwise, Well aerated. MASTOIDS: Well aerated. BONES: The bones appear intact. SOFT TISSUES: Visualized nasopharynx is normal. Superficial soft tissues are normal. IMPRESSION: No acute intracranial findings. Reviewed, dictated and finalized at location A.
--- OUTSIDE RECORDS SUMMARY | 2024-12-04 18:50 | XMS_ITS | Referral Summary ---
Author Organization [facility] [place] the [facility] Center Address [address] [place] [address] Care Team Providers Care Bumper Machine Operator Name Role Phone Marcello Son MD Primary Care Provider [phone] Allergies No known active allergies Medications NYDIA [...] 8:56 AM CDT Height 165.1 cm (5' 5) 05/09/2022 8:56 AM CDT Body Mass Index 21.27 05/09/2022 8:56 AM CDT Plan of Treatment Not on file Insurance [employer] CHO[employer] MEDICARE PPO Care Teams Bumper Machine Operator Relationship Specialty Start Date End Date Marcello Son MD [address] [facility] [place] [address] PCP - General Family Medicine 02/28/20
--- OUTSIDE RECORDS SUMMARY | 2024-12-04 18:50 | XMS_ITS | Clinical Summary ---
Author Organization [facility] [place] at the [facility] Address [address] [place] [address] Care Team Providers Care It Integration Architect Name Role Phone Marcello Son MD Primary Care Provider [phone] Allergies No known active allergies Medications NYDIA [...] of 2) 1987 Well Visit 65+ 2002 DTaP/Tdap/Td Vaccine (2 - Td or Tdap) 03/04/2025 03/04/2015 Influenza Vaccine (Season Ended) 2025 05/23/2018, 03/23/2015, 03/03/2014, Additional history exists Pneumococcal vaccine 65+ Completed 11/28/2016, 02/08 Insurance [employer] MEDICARE PPO Care Teams It Integration Architect Relationship Specialty Start Date End Date Marcello Son MD [address] [address] [place] [address] [place] [id number] PCP - General Family Medicine 02/28/20
--- NOTE | 2024-12-04 19:02 | PC.NURSE ---
pt refusing VS in triage, will atttampt again shortly
[2024-12-04 19:21] VITALS: BP 183/99; PULSE 90; RESP 18; TEMP 37; O2SAT 94
--- NOTE | 2024-12-04 20:31 | PC.NURSE ---
Family sitting with patient in waiting room. Patient remains calm
[2024-12-04 21:09] VITALS: BP 177/115; PULSE 96; RESP 18; TEMP 37.3; O2SAT 99
--- NOTE | 2024-12-04 21:43 | ECG_ITS ---
Test Date: 2024-12-04 23:06:26 Measurements Intervals Issue Rate: 96 P: 52 AK: 118 QRS: -30 QRSD: 129 T: 22 QT: 392 QTc: 497 Interpretive Statements SINUS RHYTHM WITH SHORT AK INTERVAL WITH OCCASIONAL ECTOPIC PREMATURE COMPLEXES POSSIBLE LEFT ATRIAL ENLARGEMENT [-0.1mV P-WAVE IN V1/V2] BORDERLINE LEFT AXIS DEVIATION [QRS AXIS < -20] RIGHT BUNDLE BRANCH BLOCK [120+ ms QRS DURATION, UPRIGHT V1, 40+ ms S IN I/aVL/V4/V5/V6] MODERATE T-WAVE ABNORMALITY, CONSIDER LATERAL ISCHEMIA [-0.1+ mV T-WAVE IN I/aVL/V5/V6] Compared to ECG 02/25/2024 13:13:53 Short AK interval now present T-wave abnormality still present Possible ischemia still present Electronically Signed On 12-05-2024 15:21:30 CDT by Shaq Melchor M.D.
[2024-12-04 22:29] LABS: Basophils Percent Auto 0.1 % (0.2-1.2); Eosinophils Percent Auto 0.1 % (0-4.4); Hematocrit 33.4 % (37.0-47.0); Hemoglobin 10.5 g/dL (12.0-15.0); Immature Granulocyte Absolute 0.02 K/mm3 (0.00-0.031); Immature Granulocyte Percent A 0.3 % (0-0.5); Lymphocytes Absolute Auto 0.88 K/mm3 (0.9-3.2); Lymphocytes Percent Auto 11.9 % (18.3-44.2); Mean Corpuscular HGB Conc 31.4 g/dl (32-36); Mean Corpuscular Hemoglobin 28.1 pg (26-34); Mean Corpuscular Volume 89.3 fl (80-100); Mean Platelet Volume 11.5 fl (7.4-10.4); Monocytes Absolute Auto 0.5 K/mm3 (0.1-0.6); Monocytes Percent Auto 6.3 % (2.6-8.5); Neutrophils Percent Auto 81.3 % (45.5-73.1); Platelet Count Result 242 k/mm3 (150-375); Red Blood Count 3.74 M/mm3 (4.2-5.4); White Blood Count 7.4 K/mm3 (4.5-10.0)
[2024-12-04 22:38] LABS: Alanine Aminotransferase 12 U/L (6-35); Albumin Level 4.7 g/dL (3.5-5.1); Alkaline Phosphatase 95 U/L (38-126); Anion Gap 8 mmol/L (4-12); Aspartate Amino Transferase 28 U/L (14-36); Bilirubin,Total 0.7 mg/dL (0.2-1.3); Blood Urea Nitrogen 19 mg/dL (7-17); Carbon Dioxide 29 mmol/L (22-30); Chloride 102 mmol/L (98-107); Estimated Glomerular Filt Rate > 60; Glucose 132 mg/dL (65-110); Potassium 3.8 mmol/L (3.4-5.0); Sodium 139 mmol/L (137-145)
[2024-12-04 22:41] LABS: INR 1.1; Partial Thromboplastin Time 35.8 Seconds (22.3-36.8)
--- OUTSIDE RECORDS SUMMARY | 2024-12-04 22:54 | XMS_ITS | Referral Summary ---
Author Organization [facility] [place] [facility] Address [address] [place] [address] Care Team Providers Care Lean Consultant Name Role Phone Marcello Son MD Primary Care Provider [phone] Allergies No known active allergies Medications NYDIA [...] Insurance [employer] MEDICARE PPO Care Teams Lean Consultant Relationship Specialty Start Date End Date Marcello Son MD [address] [facility] [place] [address] PCP - General Family Medicine 02/28/20
--- OUTSIDE RECORDS SUMMARY | 2024-12-04 22:54 | XMS_ITS | Clinical Summary ---
Author Organization [facility] [place] [place] at the [facility] Address [address] [place] [address] Care Team Providers Care Rubber Insulator Name Role Phone Marcello Son MD Primary Care Provider [phone] Allergies No known active allergies Medications NYDIA [...] Insurance [employer] CHO[employer] MEDICARE PPO Care Teams Rubber Insulator Relationship Specialty Start Date End Date Marcello Son MD [address] [facility] [address] [place] [address] [place] [id number] PCP - General Family Medicine 02/28/20
--- NOTE | 2024-12-04 23:06 | ED.AMS ---
HPI - Altered Mental Status General Chief Complaint: Altered Mental Status Stated Complaint: [place]-AMS, more odd than normal Time Seen by Provider: 12/04/24 22:40 History of Present Illness HPI narrative: 89-year-old female with a past medical history including advanced dementia which is her baseline mentation were she is alert to herself but otherwise does not make sense when she speaks and not able to provide collateral formation. She has a history of aggressive behavior as well during episodes of severe dementia. Patient resides at a halfway facility who called EMS for assistance to transfer to hospital for concerns of possible altered mental status. Reportedly per nursing staff patient has been ?acting off ?but not able to provide any significant findings on the examination or assessment. Patient has not had any facial asymmetry or droop, no difficulty speaking, no lateralizing symptoms. No reported trauma or injury. The son is present at bedside for collateral information states that patient is around her baseline mentation but he was called that she was more confused today. Patient has not had any recent falls or injuries. She does not appear in any acute distress and does not verbalize any complaints. Related Data Home Medications ?Medication ?Instructions ?Recorded ?Confirmed ?Last Taken ?Type aspirin 81 mg tablet,delayed 81 mg PO DAILY 10/28/20 02/15/24 05/16/21 History release atorvastatin 20 mg tablet 20 mg PO HS 10/28/20 02/15/24 05/16/21 History buspirone 10 mg tablet 10 mg PO BID 10/28/20 02/15/24 05/17/21 08:00 History diltiazem HCl 180 mg 180 mg PO DAILY 10/28/20 02/15/24 05/17/21 08:00 History capsule,extended release 24 hr diphenhydramine HCl 50 mg capsule 50 mg PO QHS PRN pruritis 10/28/20 02/15/24 05/16/21 History (Banophen) donepezil 10 mg tablet 10 mg PO QHS 10/28/20 02/15/24 05/16/21 History losartan 50 mg tablet 50 mg PO BID 10/28/20 02/15/24 05/16/21 History memantine 10 mg tablet 10 mg PO BID 10/28/20 02/15/24 05/17/21 08:00 History omeprazole 40 mg capsule,delayed 40 mg PO BID 04/02/15/24 05/16/21 History release sucralfate 100 mg/mL oral 10 ml PO QID 10/28/20 02/15/24 05/16/21 History suspension trazodone 50 mg tablet 50 mg PO QHS 10/28/20 02/15/24 05/16/21 History calcium carbonate (Tums) 200 mg PO DAILY PRN GERD 05/13/21 02/15/24 05/16/21 History famotidine 10 mg tablet 20 mg PO BID 05/13/21 02/15/24 05/16/21 History sertraline 100 mg tablet 100 mg PO DAILY 05/13/21 02/15/24 05/17/21 08:00 History Allergies Allergy/AdvReac Type Severity Reaction Status Date / Time No Known Allergies Allergy Verified 12/04/24 18:49 Review of Systems Review of Systems: As reviewed above in [facility] Past Medical History Medical History GERD (gastroesophageal reflux disease) Hyperlipidemia HTN (hypertension) Surgical History Surgical History History of esophagogastroduodenoscopy (EGD) Social History Social History Smoking status: Never smoker Alcohol intake: never Substance use: never Substance use type: does not use Living arrangements: residential Occupation/Education: retired Spiritual care concerns: No Exam Narrative: GENERAL: [Well-appearing, well-nourished, and in no acute distress.] HEAD: [Normocephalic, atraumatic.] EYES: [PERRLA and EOMI.] ENT: Nares clear, no rhinorrhea or epistaxis. Mucous membranes moist. NECK: Supple. CHEST: [Clear to auscultation. No respiratory distress.] HEART: [Regular rate and rhythm]. No murmur heard. [Normal peripheral pulses.] ABDOMEN: [Soft, nondistended], [nontender], [No rigidity or guarding] EXTREMITIES: Normal range of motion. [No edema.] SKIN: Warm, dry, no rash. NEURO: [No focal deficits]. Alert and oriented it at baseline mentation, moving all extremities, no facial asymmetry or droop, no aphasia PSYCH: [Normal mood and affect.] Course Vital Signs Vital signs: Vital Signs Temperature 37.0 C 12/04/24 19:21 Pulse Rate 90 12/04/24 19:21 Respiratory Rate 18 12/04/24 19:21 Blood Pressure 183/99 H 12/04/24 19:21 Pulse Oximetry 94 12/04/24 19:21 Temperature 37.3 C 12/04/24 21:09 Pulse Rate 90 12/05/24 03:02 Respiratory Rate 14 12/05/24 03:02 Blood Pressure 141/89 H 12/05/24 03:02 Pulse Oximetry 94 12/05/24 03:02 MDM - Altered Mental Status MDM Narrative Medical decision making narrative: 89-year-old female with history of advanced dementia presenting to the emergency department for concerns of mental status changes. Patient is normally alert to herself only and this is not changed from baseline but staff at the facility note that she has been ?acting off ?she has no lateralizing findings under assessment or during my assessment. She is moving all extremities without any facial asymmetry or aphasia. Her vital signs show some stable hypertension but no tachycardia, fever, hypoxia. She has no tenderness in the abdominal examination and no overlying skin discoloration. Considerations presently are for normal mental status changes with fluctuating dementia, potential infection such as urinary infection, low suspicion intracranial pathology such as stroke or hemorrhage or trauma. Electrolyte derangements or dehydration also possible. Laboratory studies were including CBC, CMP. CT of the head was ordered as well as urinalysis with straight catheterization. EKG shows sinus rhythm with right bundle branch block, no ST segment elevations, depressions or inversions. Patient's workup here is reassuring. No leukocytosis or anemia worse than baseline. Normal platelet count. Normal electrolytes, renal and hepatic function panel are normal, normal glucose. Urinalysis shows florid urinary tract infection which is likely the cause of her transient mental status changes combined with her advanced dementia. She has a negative head CT which is reassuring. She was started on Bactrim given her functional status and UTI and discharged back to the facility with a prescription for Bactrim twice daily. Discussed this with the family member at bedside with plan of care for outpatient antibiotic treatment at her nursing facility and they were amenable. Medical Records Attestation: I reviewed the patient's medical records. Lab Data Attestation: I reviewed the patient's lab results. 12/04/24 22:22 12/04/24 22:22 Labs: Lab Results 12/04/24 12/04/24 Range/Units 22:22 23:15 WBC 7.4 (4.5-10.0) K/mm3 RBC 3.74 L (4.2-5.4) M/mm3 Hgb 10.5 L (12.0-15.0) g/dL Hct 33.4 L (37.0-47.0) % MCV 89.3 (80-100) fl MCH 28.1 (26-34) pg MCHC 31.4 L (32-36) g/dl RDW 14.0 (11.5-14.5) % Plt Count 242 (150-375) k/mm3 MPV 11.5 H (7.4-10.4) fl Immature Gran % (Auto) 0.3 (0-0.5) % Neut % (Auto) 81.3 H (45.5-73.1) % Lymph % (Auto) 11.9 L (18.3-44.2) % [place] % (Auto) 6.3 (2.6-8.5) % Eos % (Auto) 0.1 (0-4.4) % Baso % (Auto) 0.1 L (0.2-1.2) % Lymph # (Auto) 0.88 L (0.9-3.2) K/mm3 [place] # (Auto) 0.5 (0.1-0.6) K/mm3 Eos # (Auto) 0.0 (0-0.3) K/mm3 Baso # (Auto) 0.0 (0.0-0.1) K/mm3 Abs Immat Gran (auto) 0.02 (0.00-0.031) K/mm3 Absolute Neuts (auto) 6.0 (1.3-6.7) K/mm3 Absolute Nucleated RBC 0.000 (0.0-0.012) K/mm3 Nucleated RBC % 0.0 (0.0-0.2) % PT 15.0 H (11.1-14.7) Seconds INR 1.1 APTT 35.8 (22.3-36.8) Seconds Sodium 139 (137-145) mmol/L Potassium 3.8 (3.4-5.0) mmol/L Chloride 102 (98-107) mmol/L Carbon Dioxide 29 (22-30) mmol/L Anion Gap 8 (4-12) mmol/L BUN 19 H (7-17) mg/dL Creatinine 0.76 (0.7-1.0) mg/dL Estim Creat Clear Calc Not Reportable Estimated GFR > 60 (59 - ) Glucose 132 H (65-110) mg/dL Calcium 10.0 (8.4-10.2) mg/dL Total Bilirubin 0.7 (0.2-1.3) mg/dL AST 28 (14-36) U/L ALT 12 (6-35) U/L Alkaline Phosphatase 95 (38-126) U/L Total Protein 8.0 (6.3-8.2) g/dL Albumin 4.7 (3.5-5.1) g/dL Urine Color Yellow (Yellow) Urine Appearance Cloudy H (Clear) Urine pH 6.5 (5.0-9.0) Ur Specific [place] 1.022 (1.001-1.035) Urine Protein 1+ H (Negative) mg/dL Urine Glucose (UA) Negative (Negative) mg/dL Urine Ketones 1+ H (Negative) mg/dL Ur Blood (Man) Negative (Negative) Urine Nitrate Negative (Negative) Urine Bilirubin Negative (Negative) Urine Urobilinogen 2.0 H (<2.0) mg/dL Add Ur Microanalysis Reviewed Leukocyte Esterase Rfl 1+ H (Negative) ADEEL/UL Urine RBC 3-5 H (0-2) /hpf Urine WBC 51-100 H (0-3) /hpf Ur Squamous Epith Cells None seen (Few) /hpf Urine Bacteria 4+ /hpf Urine Casts 0-2 Imaging Data Attestation: I personally reviewed and interpreted this imaging study as follows: My impression: Impressions Head CT 12/04/24 23:02 IMPRESSION: No acute intracranial findings. Discharge Plan Discharge Clinical Impression: Acute UTI, Dementia, Delirium due to general medical condition Patient Disposition: NH Halfway/Asst Living Condition: Stable Instructions: Antibiotic Form, Urinary Tract Infection in Older Adults (ED) Additional Instructions: You have a urinary tract infection which combined with her dementia is causing your symptoms today. Your other workup was reassuring your head CT was negative for any acute problems. We will send you back to the facility with a medication called Bactrim to treat your urinary infection. Follow-up with your regular doctor as needed. Return with any emergent concerns or persistent/worsening symptoms. Patient Language: Serbian Prescriptions: New sulfamethoxazole-trimethoprim [Bactrim DS] 800-160 mg tablet 1 tablet PO Q12H Qty: 14 0RF No Action aspirin 81 mg tablet,delayed release (DR/EC) 81 mg PO DAILY atorvastatin 20 mg tablet 20 mg PO HS diphenhydramine HCl [Banophen] 50 mg capsule 50 mg PO QHS PRN (Reason: pruritis) buspirone 10 mg tablet 10 mg PO BID diltiazem HCl 180 mg capsule,extended release 24hr 180 mg PO DAILY donepezil 10 mg tablet 10 mg PO QHS losartan 50 mg tablet 50 mg PO BID memantine 10 mg tablet 10 mg PO BID omeprazole 40 mg capsule,delayed release(DR/EC) 40 mg PO BID sucralfate 100 mg/mL suspension 10 ml PO QID trazodone 50 mg tablet 50 mg PO QHS famotidine 10 mg Tablet 20 mg PO BID sertraline 100 mg Tablet 100 mg PO DAILY calcium carbonate [Tums] 200 mg calcium (500 mg) Tablet,Chewable 200 mg PO DAILY PRN (Reason: GERD) Paxlovid 300 mg (150 mg x 2)-100 mg tablets,dose pack See Rx Instructions PO .COMPLEX Qty: 30 0RF Rx Instructions: take TWO 150 mg tablets of nirmatrelvir with ONE 100 mg tablet of ritonavir twice daily for 5 days PO Follow-up/Referrals: UNKNOWN,DOCTOR [Primary Care Provider] - Stand Alone Forms: Residential Discharge Time of Disposition: 23:48
[2024-12-04 23:29] LABS: Add Urine Microscopic? YES; Appearance Urine Cloudy (Clear); Bacteria Urine 4+ /hpf; Bilirubin Urine Negative (Negative); Blood Urine Negative (Negative); Color Urine Yellow (Yellow); Glucose Urine UA Negative (Negative); Ketones Urine 1+ mg/dL (Negative); Leukocyte Esterase Ur 1+ LEU/UL (Negative); Need Manual Microscopic Reviewed; Nitrate Urine Negative (Negative); Non Pathogenic Casts 0-2; Protein Urine 1+ mg/dL (Negative); Specific Grav Ur 1.022 (1.001-1.035); Squamous Epithelial Cell Urine None Seen /hpf (Few); pH Urine 6.5 (5.0-9.0)
[2024-12-04 23:31] LABS: WBC Urine 51-100 /hpf (0-3)
[2024-12-04 23:32] VITALS: BP 177/86
--- NOTE | 2024-12-05 00:16 | PC.NURSE ---
Report called to [facility] in [place] [phone]. Charley ARCHIBALD given report and all questions answered.
[2024-12-05] MEDS: SULFAMETHOXAZOLE/TRIMETHOPRIM 800/160 MG DS TABLET 1 TAB PO (00:18)
--- NOTE | 2024-12-05 00:21 | PC.NURSE ---
[facility] ems called for pt transport. Arrival time approx 3am
[2024-12-05 03:02] VITALS: BP 141/89; PULSE 90; RESP 14; O2SAT 94
== END 2024-12-05 03:04 ==
PROVIDERS: Emergency Medicine; Emergency Provider Student in an Organized Health Care Education/Training Program
DX: N39.0 Urinary tract infection, site not specified (principal); F03.90 Unspecified dementia, unspecified severity, without behavioral disturbance, psychotic disturbance, mood disturbance, and anxiety; F05 Delirium due to known physiological condition; I10 Essential (primary) hypertension; E78.5 Hyperlipidemia, unspecified; K21.9 Gastro-esophageal reflux disease without esophagitis; R94.31 Abnormal electrocardiogram [ECG] [EKG]; I45.10 Unspecified right bundle-branch block
CPT/HCPCS: 36415; 70450; 80053; 81001; 85025; 85610; 85730; 87086; 93005; 99284; A9270

== ENCOUNTER 2024-12-13 11:52 | Inpatient (IN) | payer MEDICARE, MEDICAID, SELFPAY ==
[2024-12-13] VITALS (15 sets, daily range): BP systolic 98–170; BP diastolic 52–105; PULSE 70–100; RESP 12–21; TEMP 36.6–37.8; O2SAT 90–100; BMI 17.5
--- NOTE | ~2024-12-13 | US_ITS ---
EXAMINATION: US venous doppler [facility] DATE: 12/13/2024 17:18 INDICATION: swelling . TECHNIQUE: Grayscale images without and with compression and Doppler images of the left lower extremi ty veins were obtained. COMPARISON: None FINDINGS: Acute-appearing thrombus noted in the left common femoral, profunda femoris, superficial femoral, pop liteal, posterior tibial, greater saphenous and peroneal veins. 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 Reviewed, dictated and finalized at location K.
--- NOTE | ~2024-12-13 | CT_ITS ---
EXAMINATION: CT abdomen pelvis wo con DATE: 12/13/2024 15:59 INDICATION: Lower abdominal pain TECHNIQUE: Computed tomography (CT) of the abdomen and pelvis was performed without intravenous contr ast. Automated exposure control and iterative reconstruction technique were employed. The dose-length product was 208.83 mGy-cm. COMPARISON: None FINDINGS: Incompletely visualized groundglass opacity and small patchy regions of consolidation at the posterol ateral aspect of the right middle lobe which is suspicious for pneumonia. Mild discoid atelectasis at the lingula. Heart size is normal. Atherosclerotic coronary artery calcification. No pericardial or pleural effusion. Liver, gallbladder, spleen, pancreas, bilateral adrenal glands and kidneys are norm al. Decompressed bladder is unremarkable. The uterus is not identified and has likely been surgically resected. No free intraperitoneal gas or fluid. No pathologically enlarged abdominal or pelvic lymph adenopathy. There is prominent asymmetric soft tissue swelling and subcutaneous edema in the visualiz ed left upper thigh. There is asymmetric enlargement of the left femoral, profunda femoral, common fe moral and external iliac veins compared with the right with some haziness in the surrounding fat whic h raises concern for venous thrombosis. 35 degree lumbar dextroscoliosis with severe lower lumbar and lower thoracic spondylosis. Severe right hip osteoarthritis. IMPRESSION: 1. No acute intra-abdominal/pelvic process. 2. Prominent asymmetric soft tissue swelling and subcutaneous edema at the proximal left thigh with c orresponding asymmetric increased diameter of the left external iliac, common femoral, femoral and pr ofunda femoral veins which raises concern for venous thrombosis. Recommend lower extremity venous Dop pler ultrasound for further evaluation. 3. Small region incompletely visualized airspace disease at the posterolateral right middle lobe whic h could represent pneumonia, atelectasis or pulmonary infarct. Recommend further evaluation with [facility] PE protocol chest CT or chest radiograph and VQ scan. This and the above findings were discussed w tucker Brown at 4:18 PM. Reviewed, dictated and finalized at location A. IMPRESSION: 1. No acute intra-abdominal/pelvic process. 2. Prominent asymmetric soft tissue swelling and subcutaneous edema at the prox imal left thigh with corresponding asymmetric increased diameter of the left ex ternal iliac, common femoral, femoral and profunda femoral veins which raises c oncern for venous thrombosis. Recommend lower extremity venous Doppler ultrasou nd for further evaluation. 3. Small region incompletely visualized airspace disease at the posterolateral right middle lobe which could represent pneumonia, atelectasis or pulmonary inf arct. Recommend further evaluation with either PE protocol chest CT or chest ra diograph and VQ scan. This and the above findings were discussed with Dr. Evan bass at 4:18 PM.
--- NOTE | ~2024-12-13 | XR_ITS ---
EXAMINATION: XR chest 1V portable Exam Date/Time: 12/13/2024 16:28 CDT HISTORY: SOA Comparison: 02/25/2024. RESULT: Lines, tubes, and devices: Surgical clips over the left lower chest. Lungs and pleura: Subsegmental, somewhat triangular shaped opacity in the right lower lung, lungs ot herwise clear. Cardiomediastinal silhouette: Stable. Other: No acute osseous or upper abdominal finding. IMPRESSION: Subsegmental atelectasis/consolidation in the right lower lung. Recommend short-term radiographic fol low-up to ensure resolution. Reviewed, dictated and finalized at location K. IMPRESSION: Subsegmental atelectasis/consolidation in the right lower lung. Recommend short -term radiographic follow-up to ensure resolution.
--- OUTSIDE RECORDS SUMMARY | 2024-12-13 11:55 | XMS_ITS | Referral Summary ---
Author Organization [facility] [place] [facility] Address [address] [place] [address] Care Team Providers Care Frame Operator Name Role Phone Marcello Son MD Primary Care Provider [phone] Allergies No known active allergies Medications NYDIA [...] Insurance [employer] CHOICE MEDICARE PPO Care Teams Frame Operator Relationship Specialty Start Date End Date Marcello Sno MD [address] [facility] [place] [address] PCP - General Family Medicine 02/28/20
--- OUTSIDE RECORDS SUMMARY | 2024-12-13 11:55 | XMS_ITS | Clinical Summary ---
Author [place] [facility] [place] [place] [facility] Address [address] [place] [address] Care Team Providers Care Java Flex Developer Name Role Phone Marcello Son MD Primary Care Provider [phone] Allergies No known active allergies Medications NYDIA [...] Insurance [employer] CHOICE MEDICARE PPO Care Teams Java Flex Developer Relationship Specialty Start Date End Date Marcello Son MD [address] [facility] [address] [place] [address] [place] [id number] PCP - General Family Medicine 02/28/20
--- OUTSIDE RECORDS SUMMARY | 2024-12-13 12:59 | XMS_ITS | Clinical Summary ---
Author Organization [facility] [place] at the [facility] Address [address] [place] [address] Care Team Providers Care Remote Sensing Scientist Name Role Phone Marcello Son MD Primary Care Provider [phone] Allergies No known active allergies Medications NYDIA [...] Insurance [employer] CHOICE MEDICARE PPO Care Teams Remote Sensing Scientist Relationship Specialty Start Date End Date Marcello Son MD [address] [facility] [address] [place] [address] [place] [id number] PCP - General Family Medicine 02/28/20
--- OUTSIDE RECORDS SUMMARY | 2024-12-13 12:59 | XMS_ITS | Referral Summary ---
Author [facility] [place] [facility] Address [address] [place] [address] Care Team Providers Care Reservations Sales Agent Name Role Phone Marcello Son MD Primary Care Provider [phone] Allergies No known active allergies Medications NYDIA [...] Insurance [employer] CHOICE MEDICARE PPO Care Teams Reservations Sales Agent Relationship Specialty Start Date End Date Marcello Son MD [address] [facility] [place] [address] PCP - General Family Medicine 02/28/20
--- NOTE | 2024-12-13 13:43 | ED_ITS ---
HPI - General Adult General Chief complaint: Urogenital-Female Stated complaint: no urine output Time Seen by Provider: 12/13/24 12:40 History of Present Illness HPI narrative: Patient is an 89-year-old female who presents ER with an adequate urine output. Patient recently diagnosed UTI was on antibiotics. Family noticed that she is not eating and drinking and she has not had a wet diaper for the last 48 hours. There was an attempt to straight catheter at her facility and they were not able to obtain any urine. Patient is resting comfortably but has significant dementia and cannot provide any history. Family feels patient has had some discomfort in her lower abdomen recently. Related Data Home Medications ?Medication ?Instructions ?Recorded ?Confirmed ?Last Taken ?Type aspirin 81 mg tablet,delayed 81 mg PO DAILY 10/28/20 02/15/24 05/16/21 History release atorvastatin 20 mg tablet 20 mg PO HS 10/28/20 02/15/24 05/16/21 History buspirone 10 mg tablet 10 mg PO BID 10/28/20 02/15/24 05/17/21 08:00 History diltiazem HCl 180 mg 180 mg PO DAILY 10/28/20 02/15/24 05/17/21 08:00 History capsule,extended release 24 hr diphenhydramine HCl 50 mg capsule 50 mg PO QHS PRN pruritis 10/28/20 02/15/24 05/16/21 History (Banophen) donepezil 10 mg tablet 10 mg PO QHS 10/28/20 02/15/24 05/16/21 History losartan 50 mg tablet 50 mg PO BID 10/28/20 02/15/24 05/16/21 History memantine 10 mg tablet 10 mg PO BID 10/28/20 02/15/24 05/17/21 08:00 History omeprazole 40 mg capsule,delayed 40 mg PO BID 10/28/20 02/15/24 05/16/21 History release sucralfate 100 mg/mL oral 10 ml PO QID 10/28/20 02/15/24 05/16/21 History suspension trazodone 50 mg tablet 50 mg PO QHS 10/28/20 02/15/24 05/16/21 History calcium carbonate (Tums) 200 mg PO DAILY PRN GERD 05/13/21 02/15/24 05/16/21 History famotidine 10 mg tablet 20 mg PO BID 05/13/21 02/15/24 05/16/21 History sertraline 100 mg tablet 100 mg PO DAILY 05/13/21 02/15/24 05/17/21 08:00 History Allergies Allergy/AdvReac Type Severity Reaction Status Date / Time No Known Allergies Allergy Verified 12/13/24 12:53 Review of Systems 2 Review of Systems: ROS unobtainable: Yes unobtainable due to mental status PMFSH Past Medical History Medical History GERD (gastroesophageal reflux disease) Hyperlipidemia HTN (hypertension) Surgical History Surgical History History of esophagogastroduodenoscopy (EGD) Social History Social History Smoking status: Never smoker Alcohol intake: never Substance use: never Substance use type: does not use Living arrangements: skilled nursing Occupation/Education: retired Spiritual care concerns: No Exam 2 Narrative: GENERAL: Chronically ill-appearing and frail, and in no acute distress. HEAD: Normocephalic, atraumatic. EYES: PERRL and EOMI. ENT: Mucous membranes moist. NECK: Supple. CHEST: Clear to auscultation. No respiratory distress. HEART: Regular rate and rhythm. Normal peripheral pulses. ABDOMEN: Soft, mild bilateral lower quadrant abdominal discomfort left greater than right, nondistended. EXTREMITIES: Normal range of motion. To 3+ edema nonpitting left lower extremity compared to the right. No phlegmasia. Pulses intact. SKIN: Warm, dry, no rash. NEURO: Awake and alert, not oriented. Course Course Emergency Course: Family at bedside. We discussed patient's acute kidney injury as well as the extensive DVT in left lower extremity. We discussed options including heparin, heparin with IVC filter placement, and transfer for possible thrombectomy or catheter guided tPA. Family would like to proceed with only heparin therapy as they do not want to do any aerobic measures. The patient is DNR. Patient has received IV fluid and will continue to be on a maintenance drip to help with her RICKEY. Vital Signs Vital signs: Vital Signs Temperature 97.9 F 12/13/24 11:57 Pulse Rate 97 12/13/24 11:57 Respiratory Rate 16 12/13/24 11:57 Blood Pressure 131/62 12/13/24 11:57 Pulse Oximetry 96 12/13/24 11:57 Oxygen Delivery Room Air 12/13/24 11:57 Temperature 97.8 F 12/13/24 16:31 Pulse Rate 93 12/13/24 17:31 Respiratory Rate 21 H 12/13/24 17:31 Blood Pressure 170/93 H 12/13/24 17:31 Pulse Oximetry 98 12/13/24 16:31 Oxygen Delivery Room Air 12/13/24 11:57 Medical Decision Making Vital Signs Vital Signs: Vital Signs Temperature 97.9 F 12/13/24 11:57 Pulse Rate 97 12/13/24 11:57 Respiratory Rate 16 12/13/24 11:57 Blood Pressure 131/62 12/13/24 11:57 Pulse Oximetry 96 12/13/24 11:57 Oxygen Delivery Room Air 12/13/24 11:57 Temperature 97.8 F 12/13/24 16:31 Pulse Rate 93 12/13/24 17:31 Respiratory Rate 21 H 12/13/24 17:31 Blood Pressure 170/93 H 12/13/24 17:31 Pulse Oximetry 98 12/13/24 16:31 Oxygen Delivery Room Air 12/13/24 11:57 Lab Data 12/13/24 14:08 12/13/24 14:08 Labs: Lab Results 12/13/24 Range/Units 14:08 WBC 7.0 (4.5-10.0) K/mm3 RBC 3.54 L (4.2-5.4) M/mm3 Hgb 9.8 L (12.0-15.0) g/dL Hct 31.5 L (37.0-47.0) % MCV 89.0 (80-100) fl MCH 27.7 (26-34) pg MCHC 31.1 L (32-36) g/dl RDW 14.0 (11.5-14.5) % Plt Count 182 (150-375) k/mm3 MPV 10.8 H (7.4-10.4) fl Immature Gran % (Auto) 0.6 H (0-0.5) % Neut % (Auto) 71.5 (45.5-73.1) % Lymph % (Auto) 13.3 L (18.3-44.2) % Clark % (Auto) 14.2 H (2.6-8.5) % Eos % (Auto) 0.3 (0-4.4) % Baso % (Auto) 0.1 L (0.2-1.2) % Lymph # (Auto) 0.93 (0.9-3.2) K/mm3 Clark # (Auto) 1.0 H (0.1-0.6) K/mm3 Eos # (Auto) 0.0 (0-0.3) K/mm3 Baso # (Auto) 0.0 (0.0-0.1) K/mm3 Abs Immat Gran (auto) 0.04 H (0.00-0.031) K/mm3 Absolute Neuts (auto) 5.0 (1.3-6.7) K/mm3 Absolute Nucleated RBC 0.000 (0.0-0.012) K/mm3 Nucleated RBC % 0.0 (0.0-0.2) % Sodium 139 (137-145) mmol/L Potassium 4.8 (3.4-5.0) mmol/L Chloride 107 (98-107) mmol/L Carbon Dioxide 22 (22-30) mmol/L Anion Gap 10 (4-12) mmol/L BUN 41 H D (7-17) mg/dL Creatinine 2.03 H (0.7-1.0) mg/dL Estim Creat Clear Calc Not Reportable Estimated GFR 23 L (59 - ) Glucose 132 H (65-110) mg/dL Calcium 9.8 (8.4-10.2) mg/dL Total Bilirubin 0.4 (0.2-1.3) mg/dL AST 32 (14-36) U/L ALT 16 (6-35) U/L Alkaline Phosphatase 78 (38-126) U/L Total Protein 7.5 (6.3-8.2) g/dL Albumin 4.1 (3.5-5.1) g/dL Urine Color Dark yellow (Yellow) Urine Appearance Cloudy H (Clear) Urine pH 5.5 (5.0-9.0) Ur Specific Lafe >= 1.030 (1.001-1.035) Urine Protein 1+ H (Negative) mg/dL Urine Glucose (UA) Negative (Negative) mg/dL Urine Ketones Negative (Negative) mg/dL Ur Blood (Man) Negative (Negative) Urine Nitrate Negative (Negative) Urine Bilirubin 2+ H (Negative) Urine Urobilinogen 4.0 H (<2.0) mg/dL Add Ur Microanalysis Reviewed Leukocyte Esterase Rfl Negative (Negative) ADEEL/UL Urine RBC 21-50 H (0-2) /hpf Urine WBC 0-5 (0-3) /hpf Ur Squamous Epith Cells Few (Few) /hpf Urine Bacteria None seen /hpf Urine Casts >20 Hyaline Casts 5-9 H (None) /lpf Urine Mucus Present /lpf Imaging Data Radiologist's impression: ITS Impressions Abdomen/Pelvis CT 12/13/24 16:11 IMPRESSION: 1. No acute intra-abdominal/pelvic process. 2. Prominent asymmetric soft tissue swelling and subcutaneous edema at the proximal left thigh with corresponding asymmetric increased diameter of the left external iliac, common femoral, femoral and profunda femoral veins which raises concern for venous thrombosis. Recommend lower extremity venous Doppler ultrasound for further evaluation. 3. Small region incompletely visualized airspace disease at the posterolateral right middle lobe which could represent pneumonia, atelectasis or pulmonary infarct. Recommend further evaluation with either PE protocol chest CT or chest radiograph and VQ scan. This and the above findings were discussed with Dr. Brown at 4:18 PM. Chest X-Ray 12/13/24 16:39 IMPRESSION: Subsegmental atelectasis/consolidation in the right lower lung. Recommend short- term radiographic follow-up to ensure resolution. Venous Doppler Study 12/13/24 17:21 IMPRESSION: Extensive left lower extremity DVT. Critical Care Time Critical Care Time Critical Care Time: Yes Total Critical Care Time: 35 Discharge Plan Discharge Clinical Impression: RICKEY (acute kidney injury), DVT (deep venous thrombosis) Patient Disposition: Still a Patient Condition: Stable Patient Language: Djiboutian Prescriptions: No Action aspirin 81 mg tablet,delayed release (DR/EC) 81 mg PO DAILY atorvastatin 20 mg tablet 20 mg PO HS diphenhydramine HCl [Banophen] 50 mg capsule 50 mg PO QHS PRN (Reason: pruritis) buspirone 10 mg tablet 10 mg PO BID diltiazem HCl 180 mg capsule,extended release 24hr 180 mg PO DAILY donepezil 10 mg tablet 10 mg PO QHS losartan 50 mg tablet 50 mg PO BID memantine 10 mg tablet 10 mg PO BID omeprazole 40 mg capsule,delayed release(DR/EC) 40 mg PO BID sucralfate 100 mg/mL suspension 10 ml PO QID trazodone 50 mg tablet 50 mg PO QHS famotidine 10 mg Tablet 20 mg PO BID sertraline 100 mg Tablet 100 mg PO DAILY calcium carbonate [Tums] 200 mg calcium (500 mg) Tablet,Chewable 200 mg PO DAILY PRN (Reason: GERD) sulfamethoxazole-trimethoprim [Bactrim DS] 800-160 mg tablet 1 tablet PO Q12H Qty: 14 0RF Paxlovid 300 mg (150 mg x 2)-100 mg tablets,dose pack See Rx Instructions PO .COMPLEX Qty: 30 0RF Rx Instructions: take TWO 150 mg tablets of nirmatrelvir with ONE 100 mg tablet of ritonavir twice daily for 5 days PO Follow-up/Referrals: UNKNOWN,DOCTOR [Primary Care Provider] -
[2024-12-13 14:14] LABS: Basophils Percent Auto 0.1 % (0.2-1.2); Eosinophils Percent Auto 0.3 % (0-4.4); Hematocrit 31.5 % (37.0-47.0); Hemoglobin 9.8 g/dL (12.0-15.0); Immature Granulocyte Absolute 0.04 K/mm3 (0.00-0.031); Immature Granulocyte Percent A 0.6 % (0-0.5); Lymphocytes Absolute Auto 0.93 K/mm3 (0.9-3.2); Lymphocytes Percent Auto 13.3 % (18.3-44.2); Mean Corpuscular HGB Conc 31.1 g/dl (32-36); Mean Corpuscular Hemoglobin 27.7 pg (26-34); Mean Platelet Volume 10.8 fl (7.4-10.4); Monocytes Percent Auto 14.2 % (2.6-8.5); Neutrophils Percent Auto 71.5 % (45.5-73.1); Platelet Count Result 182 k/mm3 (150-375); Red Blood Count 3.54 M/mm3 (4.2-5.4)
[2024-12-13] MEDS: SODIUM CHLORIDE 0.9% IV 1,000 ML 999 ML IV CONT ×2 (14:23→17:39)
[2024-12-13 14:26] LABS: Alanine Aminotransferase 16 U/L (6-35); Albumin Level 4.1 g/dL (3.5-5.1); Alkaline Phosphatase 78 U/L (38-126); Anion Gap 10 mmol/L (4-12); Aspartate Amino Transferase 32 U/L (14-36); Bilirubin,Total 0.4 mg/dL (0.2-1.3); Blood Urea Nitrogen 41 mg/dL (7-17); Calcium 9.8 mg/dL (8.4-10.2); Carbon Dioxide 22 mmol/L (22-30); Chloride 107 mmol/L (98-107); Estimated Glomerular Filt Rate 23; Glucose 132 mg/dL (65-110); Potassium 4.8 mmol/L (3.4-5.0); Sodium 139 mmol/L (137-145); Total Protein 7.5 g/dL (6.3-8.2)
[2024-12-13 14:40] LABS: Add Urine Microscopic? YES
[2024-12-13 14:41] LABS: Appearance Urine Cloudy (Clear); Blood Urine Negative (Negative); Color Urine Dark Yellow (Yellow); Glucose Urine UA Negative (Negative); Ketones Urine Negative (Negative); Protein Urine 1+ mg/dL (Negative); Specific Grav Ur >= 1.030 (1.001-1.035); pH Urine 5.5 (5.0-9.0)
[2024-12-13 14:42] LABS: Bilirubin Urine 2+ (Negative); Leukocyte Esterase Ur Negative LEU/UL (Negative); Nitrate Urine Negative (Negative)
[2024-12-13 14:48] LABS: Bacteria Urine None Seen /hpf; Mucus Urine Present /lpf; Need Manual Microscopic Reviewed; Non Pathogenic Casts >20; RBC Urine 21-50 /hpf (0-2); Squamous Epithelial Cell Urine Few /hpf (Few); WBC Urine 0-5 /hpf (0-3)
[2024-12-13] MEDS: HEPARIN SOD/D5W 100 UNITS/ML 25,000 UNITS/250 ML BAG 10 UNITS IV CONT (18:30)
[2024-12-13] MEDS: HEPARIN SODIUM 5,000 UNITS/ML VIAL 4500 UNITS IV PUSH (18:34)
[2024-12-13] MEDS: MORPHINE SULFATE (*CRX) 2 MG/ML INJ IV PUSH (18:39)
--- NOTE | 2024-12-13 19:01 | P.HP_ITS ---
H&P: HPI History of Present Illness Date/Time: 12/13/24 19:01 Chief Complaint: No urine output for 48 hours Narrative: 89-year-old female GERD, hyperlipidemia, hypertension with recent UTI presents the hospital with no urine output. HPI is per family and has patient has dementia. Family knows that since the patient was diagnosed with a UTI that she has decreased appetite and oral intake and has not urinated about 48 hours. Patient has no complaints. In the ED her lab work shows anemia at 9.8, BUN of 41, creatinine of 2.03, GFR 23, UA shows dark cloudy noninfective urine. Venous Doppler of left lower e xtremity shows thrombus noted in the left common femoral, profunda femoris, superficial femoral, popliteal, posterior tibial, greater saphenous and peroneal veins. 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 Due to patient's dementia and comorbidities the family has opted to stay at [facility] and do medical management only with heparin drip. Patient received 2 L of fluids in the emergency room for RICKEY and dehydration. Review of Systems Review of Systems: ROS unobtainable: Yes unobtainable due to mental status PMFSH Past Medical History Medical History (Updated 12/13/24 @ 19:06 by Светлана Hernandez APRN) GERD (gastroesophageal reflux disease) Hyperlipidemia HTN (hypertension) Surgical History Surgical History History of esophagogastroduodenoscopy (EGD) Family History Family History (Updated 12/13/24 @ 20:23 by Min Kaur RN) Other Unknown family medical history Social History Social History Smoking status: Never smoker Second hand tobacco smoke exposure: No Alcohol intake: never Substance use: never Substance use type: does not use Living arrangements: assisted Occupation/Education: retired Spiritual care concerns: No Meds Home Medications and Allergies Home Medications ?Medication ?Instructions ?Recorded ?Confirmed ?Type atorvastatin 20 mg tablet 20 mg PO HS 10/28/20 12/13/24 History diltiazem HCl 180 mg 30 mg PO QID 10/28/20 12/13/24 History capsule,extended release 24 hr diphenhydramine HCl 50 mg capsule 50 mg PO DAILY PRN pruritis 10/28/20 12/13/24 History (Banophen) losartan 50 mg tablet 50 mg PO BID 10/28/20 12/13/24 History memantine 10 mg tablet 10 mg PO BID 10/28/20 12/13/24 History omeprazole 40 mg capsule,delayed 40 mg PO BID 10/28/20 12/13/24 History release calcium carbonate (Tums) 200 mg PO DAILY PRN GERD 05/13/21 12/13/24 History famotidine 10 mg tablet 20 mg PO BID 05/13/21 12/13/24 History sertraline 100 mg tablet 100 mg PO DAILY 05/13/21 12/13/24 History acetaminophen 325 mg tablet 650 mg PO DAILY PRN fever or pain 12/13/24 12/13/24 History cholecalciferol (vitamin D3) 25 25 mcg PO DAILY 12/13/24 12/13/24 History mcg (1,000 unit) chewable tablet (Vitamin D3) diltiazem HCl 30 mg tablet 30 mg PO QID 12/13/24 12/13/24 History divalproex 125 mg tablet,delayed 125 mg PO DAILY 12/13/24 12/13/24 History release (Depakote) divalproex 250 mg tablet,delayed 250 mg PO Q12H 12/13/24 12/13/24 History release (Depakote) melatonin 5 mg tablet 10 mg PO DAILY 12/13/24 12/13/24 History Allergies Allergy/AdvReac Type Severity Reaction Status Date / Time No Known Allergies Allergy Verified 12/13/24 12:53 Vital Signs Vital Signs - 24 hr 12/13/24 11:57 12/13/24 12:45 12/13/24 13:31 Temperature 97.9 F 97.8 F 97.8 F Pulse Rate 97 95 99 Respiratory Rate 16 18 18 Blood Pressure 131/62 98/52 L 105/92 H Pulse Oximetry 96 99 Oxygen Delivery Room Air 12/13/24 14:20 12/13/24 15:01 12/13/24 15:19 Temperature 97.8 F Pulse Rate 80 90 88 Respiratory Rate 18 18 17 Blood Pressure 170/102 H 130/88 Pulse Oximetry Oxygen Delivery 12/13/24 15:32 12/13/24 16:31 12/13/24 17:01 Temperature 97.8 F Pulse Rate 94 70 94 Respiratory Rate 15 12 16 Blood Pressure 148/105 H 168/96 H Pulse Oximetry 98 Oxygen Delivery 12/13/24 17:31 12/13/24 18:30 Temperature Pulse Rate 93 100 Respiratory Rate 21 H 14 Blood Pressure 170/93 H 170/103 H Pulse Oximetry Oxygen Delivery Exam Narrative: General: well appearing, appears stated age. HEENT: normocephalic, atraumatic. Mucous membranes moist. EOMI, PERRLA, bilateral sclera anicteric, no conjunctival injection. Neck supple without JVD, lymphadenopathy, or bruit. Respiratory: clear to ascultation bilaterally. No rales/rhonic/wheezes. Cardiovascular: Regular rate and rhythm, normal S1-S2 upon ascultation. No murmurs, rubs, or clicks. PMI is nondisplaced, capillary refill less than 3 second. Abdomen: Soft, round, no pulsatile masses, nondistended and nontender. No rebound, no guarding. No CVA tenderness, no hepatosplenomegaly. Bowel sounds present to all four quadrants. No high pitch or tinkling sounds, resonant to percussion. Extremities: No cyanosis, clubbing, or edema present. Pulses are palpable 2/2. Left lower extremity slightly warmer with slight edema compared to right Neuro: Alert and orientated x 1. PERRLA. Cranial nerves 2-12 intact without focal deficit. Skin: Warm, dry, and intact, without rash, erythema, or lesion. Psych: pleasant, cooperative, normal speech, normal affect, no hallucinations, no dysarthia H&P: Results Labs Labs: Short CBC 12/13/24 Range/Units 14:08 WBC 7.0 (4.5-10.0) K/mm3 Hgb 9.8 L (12.0-15.0) g/dL Hct 31.5 L (37.0-47.0) % Plt Count 182 (150-375) k/mm3 [facility] 12/13/24 14:08 Sodium 139 Potassium 4.8 Chloride 107 Carbon Dioxide 22 BUN 41 H D Creatinine 2.03 H Glucose 132 H Calcium 9.8 Liver Function 12/13/24 Range/Units 14:08 Total Bilirubin 0.4 (0.2-1.3) mg/dL AST 32 (14-36) U/L ALT 16 (6-35) U/L Alkaline Phosphatase 78 (38-126) U/L Albumin 4.1 (3.5-5.1) g/dL Urine 12/13/24 Range/Units 14:08 Urine Color Dark yellow (Yellow) Urine Appearance Cloudy H (Clear) Urine pH 5.5 (5.0-9.0) Ur Specific Stafford >= 1.030 (1.001-1.035) Urine Protein 1+ H (Negative) mg/dL Urine Glucose (UA) Negative (Negative) mg/dL Assessment and Plan Assessment and plan (1) DVT (deep venous thrombosis): Code(s): I82.409 - Acute embolism and thrombosis of unspecified deep veins of unspecified lower extremity Status: Acute Assessment and Plan: Patient's family declines transfer to another hospital for vascular consult for intervention , wants medical management Heparin drip per protocol Frequent pulse checks (2) RICKEY (acute kidney injury): Code(s): N17.9 - Acute kidney failure, unspecified Status: Acute Assessment and Plan: 2 L fluid bolus IVF Repeat BMP in the morning Avoid nephrotoxic medications (3) HTN (hypertension): Code(s): I10 - Essential (primary) hypertension Status: Acute Assessment and Plan: Holding losartan due to severe dehydration (4) GERD (gastroesophageal reflux disease): Code(s): K21.9 - Gastro-esophageal reflux disease without esophagitis Status: Acute Assessment and Plan: Continue home famotidine (5) Dysphagia: Code(s): R13.10 - Dysphagia, unspecified Status: Acute Assessment and Plan: Continue pureed diet Quality VTE Prophylaxis VTE prophylaxis: pharmacologic ordered If No VTE Prophylaxis Answer both mechanical and pharmacologic: Reason no mechanical VTE proph: medical contraindication Hospitalist MIPS Advance Care Plan I have confirmed that the patient's Advanced Care Plan is present, code status is documented, or surrogate decision maker is listed in patient medical record.: Yes Medication Reconciliation I have utilized all available resources to obtain, update and review the patients current medications (includes all prescriptions, OTC, herbals, cannabis, and nutritional supplements).: Yes
--- NOTE | 2024-12-13 19:30 | ADMGEN ---
This patient, Casey Gonzalez, was admitted to IMU Room 212-01. Patient/family oriented to hospital policies and general routines including ID bracelet, bed and alarms, visiting hours, pain management, procedures, bathroom and other care routines, personal items, smoking policy, room service/diet, and visiting hours. Information on how to activate the Rapid Response Team has been discussed. Patient/Family are encouraged to report perceived risks to care and to ask questions if they do not understand what they are told or what they should do.
[2024-12-13] MEDS: SODIUM CHLORIDE 0.9% IV 1,000 ML 125 ML IV CONT (20:33)
[2024-12-13 21:20] LABS: INR 1.6; Prothrombin Time 19.2 Seconds (11.1-14.7)
[2024-12-13 21:50] LABS: Partial Thromboplastin Time > 200.0 Seconds (22.3-36.8)
--- NOTE | 2024-12-13 22:41 | PC.NURSE ---
Pt's weight in IMU is greater than 10% change vs in ED. PTT also not drawn at 1800 per order. On arrival to IMU, heparin gtt infusing at 1,000 units. PTT >200. Heparin gtt placed on hold. Discussed weight change with [place] in pharmacy. States based on pt's weight, original heparin infusion should have been at 800 units. Heparin to be held for 1 hour per protocol and restarted at 800 units since it was infusing at 1,000 units. Monroe to update heparin order and flushes in SEP.
[2024-12-13] MEDS: HYDROcodone/acetaminophen (*CRX) 5-325 MG TABLET 1 TAB PO (23:14)
[2024-12-14] VITALS (10 sets, daily range): BP systolic 135–167; BP diastolic 56–80; PULSE 77–93; RESP 16–20; TEMP 36.4–37.6; O2SAT 95–98
[2024-12-14] MEDS: dilTIAZem HCL 30 MG TABLET PO ×2 (00:32→05:03)
[2024-12-14 04:22] LABS: Basophils Percent Auto 0.5 % (0.2-1.2); Eosinophils Absolute Auto 0.1 K/mm3 (0-0.3); Eosinophils Percent Auto 1.3 % (0-4.4); Hematocrit 26.1 % (37.0-47.0); Immature Granulocyte Absolute 0.04 K/mm3 (0.00-0.031); Immature Granulocyte Percent A 0.7 % (0-0.5); Lymphocytes Absolute Auto 1.13 K/mm3 (0.9-3.2); Lymphocytes Percent Auto 20.2 % (18.3-44.2); Mean Corpuscular HGB Conc 30.7 g/dl (32-36); Mean Corpuscular Hemoglobin 27.7 pg (26-34); Mean Corpuscular Volume 90.3 fl (80-100); Mean Platelet Volume 10.7 fl (7.4-10.4); Monocytes Absolute Auto 0.8 K/mm3 (0.1-0.6); Monocytes Percent Auto 14.7 % (2.6-8.5); Neutrophils Absolute Auto 3.5 K/mm3 (1.3-6.7); Neutrophils Percent Auto 62.6 % (45.5-73.1); Platelet Count Result 167 k/mm3 (150-375); Red Blood Count 2.89 M/mm3 (4.2-5.4); Red Cell Distribution Width 14.1 % (11.5-14.5); White Blood Count 5.6 K/mm3 (4.5-10.0)
[2024-12-14 04:48] LABS: Anion Gap 8 mmol/L (4-12); Blood Urea Nitrogen 36 mg/dL (7-17); Calcium 8.6 mg/dL (8.4-10.2); Carbon Dioxide 18 mmol/L (22-30); Chloride 113 mmol/L (98-107); Estimated CRCL calculation 22 ml/min; Estimated Glomerular Filt Rate 43; Glucose 108 mg/dL (65-110); Potassium 4.2 mmol/L (3.4-5.0); Sodium 139 mmol/L (137-145)
[2024-12-14] MEDS: SODIUM CHLORIDE 0.9% IV 1,000 ML 125 ML IV CONT ×3 (05:04→21:42)
[2024-12-14 05:54] LABS: Partial Thromboplastin Time > 200.0 Seconds (22.3-36.8)
[2024-12-14] MEDS: SERTRALINE HCL 50 MG TABLET 100 MG PO (08:47)
[2024-12-14] MEDS: FAMOTIDINE 20 MG TABLET PO (08:48)
[2024-12-14] MEDS: MEMANTINE 10 MG TABLET PO (08:48)
[2024-12-14] MEDS: DOCUSATE SODIUM 100 MG CAPSULE PO (08:48)
[2024-12-14] MEDS: DIVALPROEX SODIUM DR 250 MG TABEC PO (08:48)
[2024-12-14] MEDS: DIVALPROEX SODIUM DR 125 MG TABEC PO (08:48)
[2024-12-14] MEDS: HYDROcodone/acetaminophen (*CRX) 5-325 MG TABLET 1 TAB PO (09:00)
--- NOTE | 2024-12-14 10:40 | P.PNIM_ITS ---
Progress Note: A&P Assessment and Plan (1) DVT (deep venous thrombosis): Code(s): I82.409 - Acute embolism and thrombosis of unspecified deep veins of unspecified lower extremity Status: Acute Assessment and Plan: Patient's family declines transfer to another hospital for vascular consult for intervention , wants medical management Heparin drip per protocol Frequent pulse checks (2) RICKEY (acute kidney injury): Code(s): N17.9 - Acute kidney failure, unspecified Status: Acute Assessment and Plan: 2 L fluid bolus IVF Repeat BMP in the morning Avoid nephrotoxic medications (3) HTN (hypertension): Code(s): I10 - Essential (primary) hypertension Status: Acute Assessment and Plan: Holding losartan due to severe dehydration (4) GERD (gastroesophageal reflux disease): Code(s): K21.9 - Gastro-esophageal reflux disease without esophagitis Status: Acute Assessment and Plan: Continue home famotidine (5) Dysphagia: Code(s): R13.10 - Dysphagia, unspecified Status: Acute Assessment and Plan: Continue pureed diet Subjective Date/time seen: 12/14/24 10:40 Interval history: Patient is admitted in the setting of acute extensive DVT. Had a long conversation with the POA. He agrees to talk with his brother and make a decision for hospice Review of Systems Review of Systems: ROS unobtainable: Yes unobtainable due to mental status Exam Narrative: General: well appearing, appears stated age. HEENT: normocephalic, atraumatic. Mucous membranes moist. EOMI, PERRLA, bi lateral sclera anicteric, no conjunctival injection. Neck supple without JVD, lymphadenopathy, or bruit. Respiratory: clear to ascultation bilaterally. No rales/rhonic/wheezes. Cardiovascular: Regular rate and rhythm, normal S1-S2 upon ascultation. No murmurs, rubs, or clicks. PMI is nondisplaced, capillary refill less than 3 second. Abdomen: Soft, round, no pulsatile masses, nondistended and nontender. No rebound, no guarding. No CVA tenderness, no hepatosplenomegaly. Bowel sounds present to all four quadrants. No high pitch or tinkling sounds, resonant to percussion. Extremities: No cyanosis, clubbing, or edema present. Pulses are palpable 2/2. Left lower extremity slightly warmer with slight edema compared to right Neuro: Alert and orientated x 1. PERRLA. Cranial nerves 2-12 intact without focal deficit. Skin: Warm, dry, and intact, without rash, erythema, or lesion. Psych: pleasant, cooperative, normal speech, normal affect, no hallucinations, no dysarthia Objective Data Vital Signs Vital Signs: Vital Signs - 24 hr 12/13/24 11:57 12/13/24 12:45 12/13/24 13:31 Temperature 97.9 F 97.8 F 97.8 F Pulse Rate 97 95 99 Respiratory Rate 16 18 18 Blood Pressure 131/62 98/52 L 105/92 H Pulse Oximetry 96 99 Oxygen Delivery Room Air Fraction of Inspired Oxygen 12/13/24 14:20 12/13/24 15:01 12/13/24 15:19 Temperature 97.8 F Pulse Rate 80 90 88 Respiratory Rate 18 18 17 Blood Pressure 170/102 H 130/88 Pulse Oximetry Oxygen Delivery Fraction of Inspired Oxygen 12/13/24 15:32 12/13/24 16:31 12/13/24 17:01 Temperature 97.8 F Pulse Rate 94 70 94 Respiratory Rate 15 12 16 Blood Pressure 148/105 H 168/96 H Pulse Oximetry 98 Oxygen Delivery Fraction of Inspired Oxygen 12/13/24 17:31 12/13/24 18:30 12/13/24 19:30 Temperature 100.0 F H Pulse Rate 93 100 89 Respiratory Rate 21 H 14 18 Blood Pressure 170/93 H 170/103 H 143/77 H Pulse Oximetry 90 Oxygen Delivery Fraction of Inspired Oxygen 12/13/24 20:50 12/13/24 22:00 12/13/24 23:37 Temperature 98.5 F Pulse Rate 87 85 95 Respiratory Rate 18 Blood Pressure 155/74 H Pulse Oximetry 93 100 Oxygen Delivery Room Air Fraction of Inspired Oxygen 21 12/14/24 02:00 12/14/24 04:00 12/14/24 04:51 Temperature 98.4 F Pulse Rate 93 81 93 Respiratory Rate 18 Blood Pressure 142/76 H Pulse Oximetry 95 Oxygen Delivery Fraction of Inspired Oxygen 12/14/24 06:00 12/14/24 07:58 12/14/24 08:00 Temperature 98.6 F Pulse Rate 81 77 77 Respiratory Rate 16 16 Blood Pressure 135/56 L Pulse Oximetry 97 97 Oxygen Delivery Room Air Fraction of Inspired Oxygen Intake/Output Intake/Output: Intake & Output 12/11/24 12/12/24 12/13/24 12/14/24 23:59 23:59 23:59 23:59 Intake Total 1035 1416.9 Output Total 75 Balance 960 1416.9 Meds/Results Medications: Active Medications Generic Name Dose Route Start Last Admin Trade Name Freq PRN Reason Stop Dose Admin Acetaminophen 650 mg 12/13/24 18:13 Acetaminophen 325 Mg Tablet PO Q4H PRN Mild Pain (1-3) or Fever Hydrocodone Bitart/Acetaminophen 1 tab 12/13/24 18:13 12/14/24 09:00 Hydrocodone/Acetaminophen (*Crx) 5-325 Mg Tablet PO 1 tab Q4H PRN Administration Pain Rated 4-6 Atorvastatin Calcium 20 mg 12/14/24 21:00 Atorvastatin 20 Mg Tablet PO HS SHAQUILLE Calcium Carbonate 200 mg 12/14/24 00:01 Calcium Carbonate (Tums) 500 Mg (200 Mg Elemental) PO DAILY PRN GERD Diltiazem HCl 30 mg 12/14/24 00:10 12/14/24 05:03 Diltiazem Hcl 30 Mg Tablet PO 30 mg Q6HR [place] Administration Divalproex Sodium 250 mg 12/14/24 09:00 12/14/24 08:[address] 250 Mg Tabec PO 250 mg Q12HR [place] Administration Divalproex Sodium 125 mg 12/14/24 09:00 12/14/24 08:[address] 125 Mg Tabec PO 125 mg DAILY [place] Administration Docusate Sodium 100 mg 12/14/24 09:00 12/14/24 08:48 Docusate Sodium 100 Mg Capsule PO 100 mg BID SHA[place] Administration Famotidine 20 mg 12/14/24 09:00 12/14/24 08:48 Famotidine 20 Mg Tablet PO 20 mg Q12HR [place] Administration Heparin Sodium (Porcine) 2,000 units 12/13/24 18:08 Heparin Sodium 5,000 Units/Ml Vial IV PUSH PRN PRN aPTT 55 - 70 seconds Heparin Sodium (Porcine) 3,500 units 12/13/24 22:39 Heparin Sodium 5,000 Units/Ml Vial IV PUSH PRN PRN aPTT less than 55 seconds Heparin Sodium/Dextrose 25,000 units in 250 mls @ 7 mls/hr 12/13/24 18:15 12/14/24 07:21 Heparin Sodium/D5w 100 Units/Ml IV CONT 700 units/hr .Q24H SHAQU[place] 7 mls/hr Titration Protocol 700 UNITS/HR Sodium Chloride 1,000 mls @ 125 mls/hr 12/13/24 18:15 12/14/24 05:04 Normal Saline Iv IV CONT 125 mls/hr .Q8H [place] Administration Memantine 10 mg 12/14/24 09:00 12/14/24 08:48 Memantine 10 Mg Tablet PO 10 mg Q12HR [place] Administration Morphine Sulfate 2 mg 12/13/24 18:13 12/13/24 18:39 Morphine Sulfate (*Crx) 2 Mg/Ml Inj IV PUSH 2 mg Q2H PRN Administration Pain Rated 7-10 Ondansetron HCl 4 mg 12/13/24 18:13 Ondansetron Inj 4 Mg/2 Ml Vial IV PUSH Q4H PRN Nausea Sertraline HCl 100 mg 12/14/24 09:00 12/14/24 08:47 Sertraline Hcl 50 Mg Tablet PO 100 mg DAILY [place] Administration Radiology Results: ITS Impressions Abdomen/Pelvis CT 12/13/24 16:11 IMPRESSION: 1. No acute intra-abdominal/pelvic process. 2. Prominent asymmetric soft tissue swelling and subcutaneous edema at the proximal left thigh with corresponding asymmetric increased diameter of the left external iliac, common femoral, femoral and profunda femoral veins which raises concern for venous thrombosis. Recommend lower extremity venous Doppler ultrasound for further evaluation. 3. Small region incompletely visualized airspace disease at the posterolateral right middle lobe which could represent pneumonia, atelectasis or pulmonary infarct. Recommend further evaluation with either PE protocol chest CT or chest radiograph and VQ scan. This and the above findings were discussed with Dr. Brown at 4:18 PM. Chest X-Ray 12/13/24 16:39 IMPRESSION: Subsegmental atelectasis/consolidation in the right lower lung. Recommend short- term radiographic follow-up to ensure resolution. Venous Doppler Study 12/13/24 17:21 IMPRESSION: Extensive left lower extremity DVT. Labs Labs: Laboratory Results - last 24 hr 12/13/24 12/13/24 12/13/24 14:08 21:02 21:03 WBC 7.0 RBC 3.54 L Hgb 9.8 L Hct 31.5 L MCV 89.0 MCH 27.7 MCHC 31.1 L RDW 14.0 Plt Count 182 MPV 10.8 H Immature Gran % (Auto) 0.6 H Neut % (Auto) 71.5 Lymph % (Auto) 13.3 L Payne % (Auto) 14.2 H Eos % (Auto) 0.3 Baso % (Auto) 0.1 L Lymph # (Auto) 0.93 Payne # (Auto) 1.0 H Eos # (Auto) 0.0 Baso # (Auto) 0.0 Abs Immat Gran (auto) 0.04 H Absolute Neuts (auto) 5.0 Absolute Nucleated RBC 0.000 Nucleated RBC % 0.0 PT 19.2 H INR 1.6 APTT > 200.0 H* Cancelled Sodium 139 Potassium 4.8 Chloride 107 Carbon Dioxide 22 Anion Gap 10 BUN 41 H D Creatinine 2.03 H Estim Creat Clear Calc Not Reportable Estimated GFR 23 L Glucose 132 H Calcium 9.8 Total Bilirubin 0.4 AST 32 ALT 16 Alkaline Phosphatase 78 Total Protein 7.5 Albumin 4.1 Urine Color Dark yellow Urine Appearance Cloudy H Urine pH 5.5 Ur Specific [place] >= 1.030 Urine Protein 1+ H Urine Glucose (UA) Negative Urine Ketones Negative Ur Blood (Man) Negative Urine Nitrate Negative Urine Bilirubin 2+ H Urine Urobilinogen 4.0 H Add Ur Microanalysis Reviewed Leukocyte Esterase Rfl Negative Urine RBC 21-50 H Urine WBC 0-5 Ur Squamous Epith Cells Few Urine Bacteria None seen Urine Casts >20 Hyaline Casts 5-9 H Urine Mucus Present 12/14/24 03:56 WBC 5.6 RBC 2.89 L Hgb 8.0 L Hct 26.1 L MCV 90.3 MCH 27.7 MCHC 30.7 L RDW 14.1 Plt Count 167 MPV 10.7 H Immature Gran % (Auto) 0.7 H Neut % (Auto) 62.6 Lymph % (Auto) 20.2 Payne % (Auto) 14.7 H Eos % (Auto) 1.3 Baso % (Auto) 0.5 Lymph # (Auto) 1.13 Payne # (Auto) 0.8 H Eos # (Auto) 0.1 Baso # (Auto) 0.0 Abs Immat Gran (auto) 0.04 H Absolute Neuts (auto) 3.5 Absolute Nucleated RBC 0.000 Nucleated RBC % 0.0 PT INR APTT > 200.0 H* Sodium 139 Potassium 4.2 Chloride 113 H Carbon Dioxide 18 L Anion Gap 8 BUN 36 H Creatinine 1.19 H Estim Creat Clear Calc 22 Estimated GFR 43 L Glucose 108 Calcium 8.6 Total Bilirubin AST ALT Alkaline Phosphatase Total Protein Albumin Urine Color Urine Appearance Urine pH Ur Specific [place] Urine Protein Urine Glucose (UA) Urine Ketones Ur Blood (Man) Urine Nitrate Urine Bilirubin Urine Urobilinogen Add Ur Microanalysis Leukocyte Esterase Rfl Urine RBC Urine WBC Ur Squamous Epith Cells Urine Bacteria Urine Casts Hyaline Casts Urine Mucus Quality VTE Prophylaxis VTE prophylaxis: pharmacologic ordered Hospitalist [facility] Advance Care Plan I have confirmed that the patient's Advanced Care Plan is present, code status is documented, or surrogate decision maker is listed in patient medical record.: Yes Medication Reconciliation I have utilized all available resources to obtain, update and review the patients current medications (includes all prescriptions, OTC, herbals, cannabis, and nutritional supplements).: Yes
[2024-12-14 13:38] LABS: Partial Thromboplastin Time 194.1 Seconds (22.3-36.8)
--- NOTE | 2024-12-14 15:21 | PC.NURSE ---
This patient, Casey Gonzalez, was transferred to [[id number] ] on 12/14/24 at 1521. Personal belongings sent with patient. Report given to [MAXINE Merchant @ [phone] ]. Appropriate documentation sent with patient.
[2024-12-14] MEDS: MORPHINE SULFATE (*CRX) 2 MG/ML INJ IV PUSH (15:35)
--- NOTE | 2024-12-14 15:59 | PC.NURSE ---
pt transferred in to room 243 via bed from IMU, reviewed MD orders and plan of care, heparin order and pump reviewed, pt resting comfortably
[2024-12-14] MEDS: VALPROIC ACID LIQ 250 MG/5 ML ORAL SOLUTION UDC PO (20:27)
[2024-12-14 21:00] LABS: Partial Thromboplastin Time 124.8 Seconds (22.3-36.8)
[2024-12-15] MEDS: dilTIAZem HCl INJ 25 MG/5 ML VIAL 12.5 MG IV PUSH (00:15)
[2024-12-15 03:31] LABS: Partial Thromboplastin Time 83.4 Seconds (22.3-36.8)
[2024-12-15] MEDS: SODIUM CHLORIDE 0.9% IV 1,000 ML 125 ML IV CONT ×3 (05:42→23:27)
[2024-12-15] MEDS: WATER IVPB ×3 (06:14→23:33)
[2024-12-15] MEDS: VALPROATE SODIUM IVPB ×3 (06:14→23:33)
[2024-12-15] MEDS: DEXTROSE 5% IVPB ×3 (06:14→23:33)
[2024-12-15 07:11] VITALS: BP 170/85; PULSE 100; RESP 16; TEMP 36.8; O2SAT 96
[2024-12-15] MEDS: dilTIAZem HCL 30 MG TABLET PO (08:16)
[2024-12-15] MEDS: FAMOTIDINE 20 MG/2 ML VIAL IV PUSH ×2 (08:17→21:09)
[2024-12-15 08:20] VITALS: PULSE 108
[2024-12-15] MEDS: METOPROLOL TARTRATE INJ 5 MG/5 ML VIAL 2.5 MG IV PUSH (08:20)
[2024-12-15 10:15] LABS: Partial Thromboplastin Time 77.2 Seconds (22.3-36.8)
[2024-12-15] MEDS: HEPARIN SOD/D5W 100 UNITS/ML 25,000 UNITS/250 ML BAG IV CONT (12:46)
--- NOTE | 2024-12-15 13:31 | PC.NURSE ---
valproate IVPB dose delayed as family is due to be meeting with hospice referral this afternoon, and is uncertain which meds they would like to continue, will continue to monitor
[2024-12-15 15:07] VITALS: BP 173/94; PULSE 94; RESP 16; TEMP 37.3; O2SAT 97
--- NOTE | 2024-12-15 16:22 | P.PNIM_ITS ---
Progress Note: A&P Assessment and Plan (1) DVT (deep venous thrombosis): Code(s): I82.409 - Acute embolism and thrombosis of unspecified deep veins of unspecified lower extremity Status: Acute Assessment and Plan: Patient's family declines transfer to another hospital for vascular consult for intervention , wants medical management Heparin drip per protocol Frequent pulse checks (2) RICKEY (acute kidney injury): Code(s): N17.9 - Acute kidney failure, unspecified Status: Acute Assessment and Plan: 2 L fluid bolus IVF Repeat BMP in the morning Avoid nephrotoxic medications (3) HTN (hypertension): Code(s): I10 - Essential (primary) hypertension Status: Acute Assessment and Plan: Holding losartan due to severe dehydration (4) GERD (gastroesophageal reflux disease): Code(s): K21.9 - Gastro-esophageal reflux disease without esophagitis Status: Acute Assessment and Plan: Continue home famotidine (5) Dysphagia: Code(s): R13.10 - Dysphagia, unspecified Status: Acute Assessment and Plan: Continue pureed diet Subjective Date/time seen: 12/15/24 16:22 Interval history: Waiting for hospice evaluation Review of Systems Review of Systems: ROS unobtainable: Yes unobtainable due to mental status Exam Narrative: General: well appearing, appears stated age. HEENT: normocephalic, atraumatic. Mucous membranes moist. EOMI, PERRLA, bilateral sclera anicteric, no conjunctival injection. Neck supple without JVD, lymphadenopathy, or bruit. Respiratory: clear to ascultation bilaterally. No rales/rhonic/wheezes. Cardiovascular: Regular rate and rhythm, normal S1-S2 upon ascultation. No murmurs, rubs, or clicks. PMI is nondisplaced, capillary refill less than 3 second. Abdomen: Soft, round, no pulsatile masses, nondistended and nontender. No rebound, no guarding. No CVA tenderness, no hepatosplenomegaly. Bowel sounds present to all four quadrants. No high pitch or tinkling sounds, resonant to percussion. Extremities: No cyanosis, clubbing, or edema present. Pulses are palpable 2/2. Left lower extremity slightly warmer with slight edema compared to right Neuro: Alert and orientated x 1. PERRLA. Cranial nerves 2-12 intact without focal deficit. Skin: Warm, dry, and intact, without rash, erythema, or lesion. Psych: pleasant, cooperative, normal speech, normal affect, no hallucinations, no dysarthia Objective Data Vital Signs Vital Signs: Vital Signs - 24 hr 12/14/24 20:00 12/14/24 21:39 12/15/24 07:11 Temperature 97.6 F 98.2 F Pulse Rate 87 100 Respiratory Rate 16 16 Blood Pressure 167/80 H 170/85 H Pulse Oximetry 98 96 Oxygen Delivery Room Air 12/15/24 08:10 12/15/24 08:20 12/15/24 15:07 Temperature 99.1 F Pulse Rate 108 H 94 Respiratory Rate 16 Blood Pressure 173/94 H Pulse Oximetry 97 Oxygen Delivery Room Air Intake/Output Intake/Output: Intake & Output 12/12/24 12/13/24 12/14/24 12/15/24 23:59 23:59 23:59 23:59 Intake Total 1035 3501.7 2294.86 Output Total 75 Balance 960 3501.7 2294.86 Meds/Results Medications: Active Medications Generic Name Dose Route Start Last Admin Trade Name Freq PRN Reason Stop Dose Admin Acetaminophen 650 mg 12/13/24 18:13 Acetaminophen 325 Mg Tablet PO Q4H PRN Mild Pain (1-3) or Fever Acetaminophen 650 mg 12/14/24 21:24 Acetaminophen 650 Mg Suppository RECTAL Q6H PRN Mild Pain (1-3) or Fever Atorvastatin Calcium 20 mg 12/14/24 21:00 12/14/24 20:36 Atorvastatin 20 Mg Tablet PO Not Given HS SHAQU[place] Bisacodyl 10 mg 12/14/24 21:24 Bisacodyl 10 Mg Suppository RECTAL QAM PRN Constipation Calcium Carbonate 200 mg 12/14/24 00:01 Calcium Carbonate (Tums) 500 Mg (200 Mg Elemental) PO DAILY PRN GERD Diltiazem HCl 30 mg 12/14/24 00:10 12/15/24 08:16 Diltiazem Hcl 30 Mg Tablet PO 30 mg Q6HR [place] Administration Famotidine 20 mg 12/14/24 09:00 12/14/24 20:36 Famotidine 20 Mg Tablet PO Not Given Q12HR [place] Famotidine 20 mg 12/15/24 09:00 12/15/24 08:17 Famotidine 20 Mg/2 Ml Vial IV PUSH 20 mg Q12HR [place] Administration Heparin Sodium (Porcine) 2,000 units 12/13/24 18:08 Heparin Sodium 5,000 Units/Ml Vial IV PUSH PRN PRN aPTT 55 - 70 seconds Heparin Sodium (Porcine) 3,500 units 12/13/24 22:39 Heparin Sodium 5,000 Units/Ml Vial IV PUSH PRN PRN aPTT less than 55 seconds Heparin Sodium/Dextrose 25,000 units in 250 mls @ 5 mls/hr 12/13/24 18:15 12/15/24 12:46 Heparin Sodium/D5w 100 Units/Ml IV CONT 500 units/hr .Q24H [place] 5 mls/hr Administration Protocol 500 UNITS/HR Sodium Chloride 1,000 mls @ 125 mls/hr 12/13/24 18:15 12/15/24 14:45 Normal Saline Iv IV CONT 125 mls/hr .Q8H [place] Administration Valproate Sodium 156 mg/ 51.56 mls @ 51.56 mls/hr 12/15/24 06:00 12/15/24 07:14 Dextrose IVPB Infused Q6HR [place] Infusion Memantine 10 mg 12/14/24 09:00 12/14/24 20:36 Memantine 10 Mg Tablet PO Not Given Q12HR [place] Morphine Sulfate 2 mg 12/13/24 18:13 12/14/24 15:35 Morphine Sulfate (*Crx) 2 Mg/Ml Inj IV PUSH 2 mg Q2H PRN Administration Pain Rated 7-10 Ondansetron HCl 4 mg 12/13/24 18:13 Ondansetron Inj 4 Mg/2 Ml Vial IV PUSH Q4H PRN Nausea Sertraline HCl 100 mg 12/14/24 09:00 12/14/24 08:47 Sertraline Hcl 50 Mg Tablet PO 100 mg DAILY [facility] Administration Valproate Sodium 250 mg 12/14/24 21:00 12/14/24 20:27 Valproic Acid Liq 250 Mg/5 Ml Oral Solution Udc PO 250 mg Q12HR [place] Administration Valproate Sodium 125 mg 12/15/24 09:00 Valproic Acid Liq 250 Mg/5 Ml Oral Solution Udc PO DAILY [facility] Radiology Results: ITS Impressions Abdomen/Pelvis CT 12/13/24 16:11 IMPRESSION: 1. No acute intra-abdominal/pelvic process. 2. Prominent asymmetric soft tissue swelling and subcutaneous edema at the proximal left thigh with corresponding asymmetric increased diameter of the left external iliac, common femoral, femoral and profunda femoral veins which raises concern for venous thrombosis. Recommend lower extremity venous Doppler ultrasound for further evaluation. 3. Small region incompletely visualized airspace disease at the posterolateral right middle lobe which could represent pneumonia, atelectasis or pulmonary infarct. Recommend further evaluation with either PE protocol chest CT or chest radiograph and VQ scan. This and the above findings were discussed with Dr. Brown at 4:18 PM. Chest X-Ray 12/13/24 16:39 IMPRESSION: Subsegmental atelectasis/consolidation in the right lower lung. Recommend short- term radiographic follow-up to ensure resolution. Venous Doppler Study 12/13/24 17:21 IMPRESSION: Extensive left lower extremity DVT. Labs Labs: Laboratory Results - last 24 hr 12/14/24 12/15/24 12/15/24 20:43 03:03 09:45 APTT 124.8 H 83.4 H 77.2 H Quality VTE Prophylaxis VTE prophylaxis: pharmacologic ordered Hospitalist [facility] Advance Care Plan I have confirmed that the patient's Advanced Care Plan is present, code status is documented, or surrogate decision maker is listed in patient medical record.: Yes Medication Reconciliation I have utilized all available resources to obtain, update and review the patients current medications (includes all prescriptions, OTC, herbals, cannabis, and nutritional supplements).: Yes
[2024-12-15] MEDS: MORPHINE SULFATE (*CRX) 2 MG/ML INJ IV PUSH (17:35)
[2024-12-15 20:04] VITALS: BP 185/82; PULSE 106; RESP 16; TEMP 36.7; O2SAT 99
[2024-12-16 05:10] VITALS: BP 187/77; PULSE 96; RESP 20; TEMP 37; O2SAT 96
[2024-12-16 05:20] LABS: Partial Thromboplastin Time 59.1 Seconds (22.3-36.8)
[2024-12-16] MEDS: WATER IVPB ×2 (05:38→12:32)
[2024-12-16] MEDS: VALPROATE SODIUM IVPB ×2 (05:38→12:32)
[2024-12-16] MEDS: DEXTROSE 5% IVPB ×2 (05:38→12:32)
[2024-12-16] MEDS: HEPARIN SODIUM 5,000 UNITS/ML VIAL 2000 UNITS IV PUSH (05:44)
[2024-12-16] MEDS: SODIUM CHLORIDE 0.9% IV 1,000 ML 125 ML IV CONT (08:41)
[2024-12-16] MEDS: FAMOTIDINE 20 MG/2 ML VIAL IV PUSH (08:41)
--- NOTE | 2024-12-16 09:40 | P.PNIM_ITS ---
Progress Note: A&P Assessment and Plan (1) DVT (deep venous thrombosis): Code(s): I82.409 - Acute embolism and thrombosis of unspecified deep veins of unspecified lower extremity Status: Acute Assessment and Plan: Patient's family declines transfer to another hospital for vascular consult for intervention , wants medical management Heparin drip per protocol Frequent pulse checks (2) RICKEY (acute kidney injury): Code(s): N17.9 - Acute kidney failure, unspecified Status: Acute Assessment and Plan: 2 L fluid bolus IVF Repeat BMP in the morning Avoid nephrotoxic medications (3) HTN (hypertension): Code(s): I10 - Essential (primary) hypertension Status: Acute Assessment and Plan: Holding losartan due to severe dehydration (4) GERD (gastroesophageal reflux disease): Code(s): K21.9 - Gastro-esophageal reflux disease without esophagitis Status: Acute Assessment and Plan: Continue home famotidine (5) Dysphagia: Code(s): R13.10 - Dysphagia, unspecified Status: Acute Assessment and Plan: Continue pureed diet Subjective Date/time seen: 12/16/24 09:40 Interval history: Pending hospice evaluation. Review of Systems Review of Systems: ROS unobtainable: Yes unobtainable due to mental status Exam Narrative: General: well appearing, appears stated age. HEENT: normocephalic, atraumatic. Mucous membranes moist. EOMI, PERRLA, bilateral sclera anicteric, no conjunctival injection. Neck supple without JVD, lymphadenopathy, or bruit. Respiratory: clear to ascultation bilaterally. No rales/rhonic/wheezes. Cardiovascular: Regular rate and rhythm, normal S1-S2 upon ascultation. No murmurs, rubs, or clicks. PMI is nondisplaced, capillary refill less than 3 second. Abdomen: Soft, round, no pulsatile masses, nondistended and nontender. No rebound, no guarding. No CVA tenderness, no hepatosplenomegaly. Bowel sounds present to all four quadrants. No high pitch or tinkling sounds, resonant to percussion. Extremities: No cyanosis, clubbing, or edema present. Pulses are palpable 2/2. Left lower extremity slightly warmer with slight edema compared to right Neuro: Alert and orientated x 1. PERRLA. Cranial nerves 2-12 intact without focal deficit. Skin: Warm, dry, and intact, without rash, erythema, or lesion. Psych: pleasant, cooperative, normal speech, normal affect, no hallucinations, no dysarthia Objective Data Vital Signs Vital Signs: Vital Signs - 24 hr 12/15/24 15:07 12/15/24 20:04 12/16/24 05:10 Temperature 99.1 F 98.0 F 98.6 F Pulse Rate 94 106 H 96 Respiratory Rate 16 16 20 Blood Pressure 173/94 H 185/82 H 187/77 H Pulse Oximetry 97 99 96 Oxygen Delivery 12/16/24 08:40 Temperature Pulse Rate Respiratory Rate Blood Pressure Pulse Oximetry Oxygen Delivery Room Air Intake/Output Intake/Output: Intake & Output 12/13/24 12/14/24 12/15/24 12/16/24 23:59 23:59 23:59 23:59 Intake Total 1035 3501.7 3346.42 1236.26 Output Total 75 Balance 960 3501.7 3346.42 1236.26 Meds/Results Medications: Active Medications Generic Name Dose Route Start Last Admin Trade Name Freq PRN Reason Stop Dose Admin Acetaminophen 650 mg 12/13/24 18:13 Acetaminophen 325 Mg Tablet PO Q4H PRN Mild Pain (1-3) or Fever Acetaminophen 650 mg 12/14/24 21:24 Acetaminophen 650 Mg Suppository RECTAL Q6H PRN Mild Pain (1-3) or Fever Atorvastatin Calcium 20 mg 12/14/24 21:00 12/15/24 21:10 Atorvastatin 20 Mg Tablet PO Not Given HS SHAQUILLE Bisacodyl 10 mg 12/14/24 21:24 Bisacodyl 10 Mg Suppository RECTAL QAM PRN Constipation Calcium Carbonate 200 mg 12/14/24 00:01 Calcium Carbonate (Tums) 500 Mg (200 Mg Elemental) PO DAILY PRN GERD Diltiazem HCl 30 mg 12/14/24 00:10 12/16/24 05:38 Diltiazem Hcl 30 Mg Tablet PO Not Given Q6HR SHAQUILLE Famotidine 20 mg 12/14/24 09:00 12/14/24 20:36 Famotidine 20 Mg Tablet PO Not Given Q12HR SHAQUILLE Famotidine 20 mg 12/15/24 09:00 12/16/24 08:41 Famotidine 20 Mg/2 Ml Vial IV PUSH 20 mg Q12HR SHAQUILLE Administration Heparin Sodium (Porcine) 2,000 units 12/13/24 18:08 12/16/24 05:44 Heparin Sodium 5,000 Units/Ml Vial IV PUSH 2,000 units PRN PRN Administration aPTT 55 - 70 seconds Heparin Sodium (Porcine) 3,500 units 12/13/24 22:39 Heparin Sodium 5,000 Units/Ml Vial IV PUSH PRN PRN aPTT less than 55 seconds Heparin Sodium/Dextrose 25,000 units in 250 mls @ 6 mls/hr 12/13/24 18:15 12/16/24 05:42 Heparin Sodium/D5w 100 Units/Ml IV CONT 600 units/hr .Q24H SHAQUILLE 6 mls/hr Titration Protocol 600 UNITS/HR Sodium Chloride 1,000 mls @ 125 mls/hr 12/13/24 18:15 12/16/24 08:41 Normal Saline Iv IV CONT 125 mls/hr .Q8H SHAQUILLE Administration Valproate Sodium 156 mg/ 51.56 mls @ 51.56 mls/hr 12/15/24 06:00 12/16/24 05:38 Dextrose IVPB 51.56 mls/hr Q6HR SHAQUILLE Administration Memantine 10 mg 12/14/24 09:00 12/14/24 20:36 Memantine 10 Mg Tablet PO Not Given Q12HR SHAQUILLE Morphine Sulfate 2 mg 12/13/24 18:13 12/15/24 17:35 Morphine Sulfate (*Crx) 2 Mg/Ml Inj IV PUSH 2 mg Q2H PRN Administration Pain Rated 7-10 Ondansetron HCl 4 mg 12/13/24 18:13 Ondansetron Inj 4 Mg/2 Ml Vial IV PUSH Q4H PRN Nausea Sertraline HCl 100 mg 12/14/24 09:00 12/14/24 08:47 Sertraline Hcl 50 Mg Tablet PO 100 mg DAILY [facility] Administration Valproate Sodium 250 mg 12/14/24 21:00 12/14/24 20:27 Valproic Acid Liq 250 Mg/5 Ml Oral Solution Udc PO 250 mg Q12HR SHAQU[facility]LE Administration Valproate Sodium 125 mg 12/15/24 09:00 Valproic Acid Liq 250 Mg/5 Ml Oral Solution Udc PO DAILY [facility] Radiology Results: ITS Impressions Abdomen/Pelvis CT 12/13/24 16:11 IMPRESSION: 1. No acute intra-abdominal/pelvic process. 2. Prominent asymmetric soft tissue swelling and subcutaneous edema at the proximal left thigh with corresponding asymmetric increased diameter of the left external iliac, common femoral, femoral and profunda femoral veins which raises concern for venous thrombosis. Recommend lower extremity venous Doppler ultrasound for further evaluation. 3. Small region incompletely visualized airspace disease at the posterolateral right middle lobe which could represent pneumonia, atelectasis or pulmonary infarct. Recommend further evaluation with either PE protocol chest CT or chest radiograph and VQ scan. This and the above findings were discussed with Dr. Brown at 4:18 PM. Chest X-Ray 12/13/24 16:39 IMPRESSION: Subsegmental atelectasis/consolidation in the right lower lung. Recommend short- term radiographic follow-up to ensure resolution. Venous Doppler Study 12/13/24 17:21 IMPRESSION: Extensive left lower extremity DVT. Labs Labs: Laboratory Results - last 24 hr 12/15/24 12/16/24 09:45 04:12 APTT 77.2 H 59.1 H Quality VTE Prophylaxis VTE prophylaxis: pharmacologic ordered Hospitalist [facility] Advance Care Plan I have confirmed that the patient's Advanced Care Plan is present, code status is documented, or surrogate decision maker is listed in patient medical record.: Yes Medication Reconciliation I have utilized all available resources to obtain, update and review the patients current medications (includes all prescriptions, OTC, herbals, cannabis, and nutritional supplements).: Yes
[2024-12-16] MEDS: MORPHINE SULFATE (*CRX) 2 MG/ML INJ IV PUSH (10:24)
--- NOTE | 2024-12-16 11:56 | P.DS_ITS ---
DS: Admitting Diagnosis Discharge Date 12/16/2024 Admitting Diagnosis Functional decline, decreased urinary output, left lower extremity DVT DS: Discharge Diagnosis Discharge Diagnosis (1) DVT (deep venous thrombosis): Code(s): I82.409 - Acute embolism and thrombosis of unspecified deep veins of unspecified lower extremity Status: Acute Assessment and Plan: Patient's family declines transfer to another hospital for vascular consult for intervention , wants medical management Heparin drip per protocol Frequent pulse checks (2) RICKEY (acute kidney injury): Code(s): N17.9 - Acute kidney failure, unspecified Status: Acute Assessment and Plan: 2 L fluid bolus IVF Repeat BMP in the morning Avoid nephrotoxic medications (3) HTN (hypertension): Code(s): I10 - Essential (primary) hypertension Status: Acute Assessment and Plan: Holding losartan due to severe dehydration (4) GERD (gastroesophageal reflux disease): Code(s): K21.9 - Gastro-esophageal reflux disease without esophagitis Status: Acute Assessment and Plan: Continue home famotidine (5) Dysphagia: Code(s): R13.10 - Dysphagia, unspecified Status: Acute Assessment and Plan: Continue pureed diet DS: Summary Hospital Course Hospital Course: 89-year-old female GERD, hyperlipidemia, hypertension with recent UTI presents the hospital with no urine output. HPI is per family and has patient has d libia. Family knows that since the patient was diagnosed with a UTI that she has decreased appetite and oral intake and has not urinated about 48 hours. Patient has no complaints. In the ED her lab work shows anemia at 9.8, BUN of 41, creatinine of 2.03, GFR 23, UA shows dark cloudy noninfective urine. Venous Doppler of left lower extremity shows thrombus noted in the left common femoral, profunda femoris, superficial femoral, popliteal, posterior tibial, greater saphenous and peroneal veins. 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 Due to patient's dementia and comorbidities the family has opted to stay at [facility] and do medical management only with heparin drip. Patient received 2 L of fluids in the emergency room for RICKEY and dehydration. After assuming the care had a long discussion with the family who does not want any aggressive measures due to patient dementia and other comorbid conditions. Patient has extensive DVT and family did not want any surgery or intervention. The agreed to consult hospice and patient will be discharged under the care of hospice. Status at Discharge Cognitive/behavioral status at discharge: Guarded Time Spent with Patient Time attestation: Total time spent providing and/or coordinating discharge services: 45 minutes Exam Narrative: General: well appearing, appears stated age. HEENT: normocephalic, atraumatic. Mucous membranes moist. EOMI, PERRLA, bilateral sclera anicteric, no conjunctival injection. Neck supple without JVD, lymphadenopathy, or bruit. Respiratory: clear to ascultation bilaterally. No rales/rhonic/wheezes. Cardiovascular: Regular rate and rhythm, normal S1-S2 upon ascultation. No murmurs, rubs, or clicks. PMI is nondisplaced, capillary refill less than 3 second. Abdomen: Soft, round, no pulsatile masses, nondistended and nontender. No rebound, no guarding. No CVA tenderness, no hepatosplenomegaly. Bowel sounds present to all four quadrants. No high pitch or tinkling sounds, resonant to percussion. Extremities: No cyanosis, clubbing, or edema present. Pulses are palpable 2/2. Left lower extremity slightly warmer with slight edema compared to right Neuro: Alert and orientated x 1. PERRLA. Cranial nerves 2-12 intact without focal deficit. Skin: Warm, dry, and intact, without rash, erythema, or lesion. Psych: pleasant, cooperative, normal speech, normal affect, no hallucinations, no dysarthia DS: Data Data Completed and Pending Labs on day of discharge: Labs from last 24 hours 12/16/24 04:12 APTT 59.1 H Discharge Plan Discharge Attending physician on discharge: Adrián Frazier Discharging Clinician: Adrián Frazier Anticipated Discharge Date/Time: 12/16/24 11:59 Patient Disposition: Hospice - Home Activity: as tolerated Diet: as tolerated Discharge Instructions: Medication reconciliation as per hospice Patient has extensive left leg DVT due to patient condition no anticoagulation started. Please follow up with PCP/ Hospice physician about left leg DVT and further management accordingly. Patient Instructions: Deep Vein Thrombosis (DC) Patient Language: Arabic Stand Alone Forms: General Discharge Information Discharge Medications: Continued atorvastatin 20 mg tablet 20 mg PO HS diphenhydramine HCl [Banophen] 50 mg capsule 50 mg PO DAILY PRN (Reason: pruritis) diltiazem HCl 180 mg capsule,extended release 24hr 30 mg PO QID losartan 50 mg tablet 50 mg PO BID memantine 10 mg tablet 10 mg PO BID omeprazole 40 mg capsule,delayed release(DR/EC) 40 mg PO BID sertraline 100 mg Tablet 100 mg PO DAILY calcium carbonate [Tums] 200 mg calcium (500 mg) Tablet,Chewable 200 mg PO DAILY PRN (Reason: GERD) acetaminophen 325 mg tablet 650 mg PO DAILY PRN (Reason: fever or pain) Rx Instructions: Take 650mg po daily and every four as needed for pain or fever divalproex [Depakote] 250 mg tablet,delayed release (DR/EC) 250 mg PO Q12H divalproex [Depakote] 125 mg tablet,delayed release (DR/EC) 125 mg PO DAILY cholecalciferol (vitamin D3) [Vitamin D3] 25 mcg (1,000 unit) tablet,chewable 25 mcg PO DAILY melatonin 5 mg tablet 10 mg PO DAILY diltiazem HCl 30 mg tablet 30 mg PO QID Discontinued famotidine 10 mg Tablet 20 mg PO BID Date of admission: 12/14/24 13:56 Primary Care Provider: UNKNOWN,DOCTOR Admitting Provider: Adrián Frazier Attending physician on admission: Adrián Frazier Condition: Guarded Prognosis
[2024-12-16] MEDS: dilTIAZem HCL 30 MG TABLET PO (12:32)
[2024-12-16 14:58] VITALS: BP 167/85; PULSE 95; RESP 14; TEMP 36.9; O2SAT 98
== END 2024-12-16 16:00 | disposition hospice, home (50) | DRG 300 ==
LOC: ANHED 18:42 → ANHIMU 18:45 → ANH2MED 12-14 15:42
PROVIDERS: Internal Medicine; Nurse Practitioner Gerontology; Admitting Provider General Practice; Emergency Provider Emergency Medicine; Visit Provider General Practice
DX: I82.412 Acute embolism and thrombosis of left femoral vein (principal); N17.9 Acute kidney failure, unspecified; I82.432 Acute embolism and thrombosis of left popliteal vein; I82.442 Acute embolism and thrombosis of left tibial vein; I82.452 Acute embolism and thrombosis of left peroneal vein; I82.492 Acute embolism and thrombosis of other specified deep vein of left lower extremity; K21.9 Gastro-esophageal reflux disease without esophagitis; E86.0 Dehydration; R13.10 Dysphagia, unspecified; E78.5 Hyperlipidemia, unspecified; F03.90 Unspecified dementia, unspecified severity, without behavioral disturbance, psychotic disturbance, mood disturbance, and anxiety; Z66 Do not resuscitate; Z87.440 Personal history of urinary (tract) infections
CPT/HCPCS: 36415; 71045; 74176; 80048; 80053; 81001; 85025; 85610; 85730; 93971; 96361; 96374; 96375; 99285; A9270; G0378; J1644; J2270; J7030